=== PATIENT | male | born 1950 | race Caucasian/White ===

== ENCOUNTER → 2017-11-22 07:43 | Outpatient (CLI) | payer MEDICARE, OTHER, SELFPAY ==
--- NOTE | 2017-11-22 07:43 | DT_ITS ---
This patient was seen during an EMR downtime November 17, 2017 - November 24, 2017. This patient may have a combination of paper and electronic documentation or all paper documentation. All documentation is viewable within the e-chart portion of [facility] for each patient visit.
--- NOTE | 2017-11-22 08:23 | MRI_ITS ---
STUDY: MRI LUMBAR SPINE WITHOUT CONTRAST REASON FOR EXAM: Male, 67 years old. Increasing low back pain with radicular symptoms of the right hip. TECHNIQUE: Standardized fat and water weighted pulse sequences were obtained in the sagittal and axial planes. Multiple images are limited by patient motion. COMPARISON: Radiographs of the lumbar spine dated April 23, 2016. FINDINGS: T12-L1: Normal endplates. Normal disc height, signal and morphology. Normal bilateral facet joints. Normal central canal and bilateral lateral recesses. Normal bilateral intervertebral neural foramina. There is straightening of the normal lumbar lordosis. There is no substantial scoliosis. Normal conus medullaris that terminates at the T12-L1 level. L1-2: There is mild annular disk bulge and osteophyte complex. There is mild degenerative arthropathy of the facet joints. Bilateral neuroforamina are narrowed without MR evidence for nerve impingement. There is no significant central canal stenosis. L2-3: There is mild annular disk bulge and osteophyte complex. There is mild degenerative arthropathy of the facet joints. Bilateral neuroforamina are narrowed without MR evidence for nerve impingement. There is no significant central canal stenosis. L3-4: There is mild annular disk bulge and osteophyte complex. There is mild broad central disc protrusion. There is mild degenerative arthropathy of the facet joints. Bilateral neuroforamina are narrowed, left greater than right, without MR evidence for nerve impingement. There is no significant central canal stenosis. L4-5: There is narrowing of the disc with vacuum disc phenomenon. There is an annular disc bulge with posterior broad central disc protrusion. There is mild central acquired canal stenosis. There is mild degenerative arthropathy of facet joints. Neural foramina are severely narrowed with probable impingement of the right L4 nerve root at the neural foramen. L5-S1: There is narrowing of the disc with vacuum disc phenomenon. There is a broad central disc protrusion and osteophyte complex. There is moderate degenerative arthropathy of facet joints. There is no sniffing and central acquired canal stenosis. Neural foramina are severely narrowed with probable impingement of the L5 nerve roots at the neural foramina. Normal visualized sacral ala. Normal visualized paraspinous soft tissue structures. MRI/Spine Lumbar (Routine) IMPRESSION: Moderately severe multilevel degenerative disc disease and degenerative arthropathy of the lumbar spine with neural foraminal narrowing, acquired canal stenosis and potential nerve impingement, as described. Electronically Signed: Neida Fajardo MD at 11:21 EDT , Service support ,
== END ==
PROVIDERS: Family Provider Family Medicine; PCP Family Medicine; Visit Provider Family Medicine
DX: M54.41 Lumbago with sciatica, right side (principal)
CPT/HCPCS: 72148

== ENCOUNTER 2017-12-05 13:00 | Outpatient (RCR) | payer MEDICARE, OTHER, SELFPAY ==
--- NOTE | 2017-09-18 10:47 | HP.PTEVAL_ITS ---
Patient's Visit Information GIACOMO MADRIGAL is a 67 year old M referred to Physical Therapy by Milind DUMONT with a diagnosis of LUMBAR DDD WITH RADIATION DOWN RIGHT LEG.. Date of Evaluation: 09/18/17 Physical Therapist: Sasha Chaidez Visit Plan Frequency: 2-3x /Week Duration: 4-6 Weeks Plan: LUMBAR US. POSTURE CORRECTION/STRENGTHENING, INSTRUCTION IN APPROPRIATE BODY MECHANICS AND ACTIVITY MODIFICATIONS. DLS STARTING WITH A NEUTRAL SPINE PROGRESSING ROM TOLERATED. MARQUIS LE ROM, STRETCHING AND STRENGTHENING. HEP INSTRUCTION. - Subjective Subjective: Diagnosis: LUMBAR DDD WITH RADIATION DOWN RIGHT LEG. 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 Disability: NO. Present symptoms: MARQUIS LOW BACK, RIGHT BUTTOCK, THIGH, LEG AND FOOT. PATIENT DENIES MARQUIS LE NUMBNESS AND TINGLING. LEG SX'S STARTED ABOUT 6 OR MORE MONTHS AGO AND HAS PROGRESSIVELY GOTTEN WORSE. PATIENT LATER REMEMBERED THAT HE GETS INTERMITTENT LEFT GREAT TOE NUMBNESS AND NUMBNESS OF THE RIGHT 2ND, 3RD AND 4TH TOES. Present since: ABOUT A YEAR AGO. Pain Scale: WORST 7/10, LEAST 0/10. Currently: /10. Commenced as a result of: NO APPARENT REASON. Symptoms at onset: LOW BACK PAIN. Worse: STANDING, LYING RIGHT SIDE, HEAVY LIFTING. Better: SITTING. Disturbed sleep: YES. Previous history/Previous treatment: LONG HISTORY OF GOING TO A CHIROPRACTOR STARTING WEEKLY ABOUT 10 YEARS AGO THEN DECREASING TO MONTHLY UNTIL ABOUT A YEAR AGO WHEN THE CHIROPRACTOR SAID SHE COULDN'T DO ANYTHING ELSE. NO PT. NO INJECTIONS. NO BACK SURGERY. NO LOST TIME FROM WORK. NO PRESCRIPTION MEDICATIONS FOR BACK UNTIL GABAPENTEN THIS EPISODE. NO SPECIALIST CONSULTS. Coughing/sneezing/straining: NEGATIVE. Gait : PATIENT REPORTS HIS WALK FEELS NORMAL TO HIM BUT HIS SAYS HE LIMPS AND TURNS HIS FOOT OUT. Difficulty initiating urinatin: NO. Accidents: FALLS ON THE ICE THIS PAST WINTER - MAY AND JUN - EXACERBATED SX'S. ONCE LANDED ON BACK AND ONCE LANDED ON TAILBONE. Unexplained weight loss: NO. Imaging: LUMBAR X- RAYS ABOUT A YEAR AGO - DDD, NO LUMBAR MRI. PMH: CAD, 9 STENTS - 7 YEARS AGO. - Objective Sitting Posture: POOR. Standing Posture: POOR. Lordosis: REDUCED. Lateral shift: NO. Relevant shift: N/A. Active Correction of posture: NE. Other Observations: INDEP GAIT INTO PT WITHOUT ANY AD'S LIMPING ON THE RIGHT LE. NO LOSS OF BALANCE. Motor deficit: MARQUIS LE STRENGTH IS 5/5 WITH MMT'ING EXCEPT HIPS GRADED 4/5 AND RIGHT ANKLE DORSIFLEX 4/5. Sensory deficit: MARQUIS LE LIGHT TOUCH SENSATION IS INTACT AND SYMMETRICAL WITH TESTING TODAY BUT PATIENT IS HAVING INTERMITTENT TOE NUMBNESS STATED ABOVE. ROM deficit: TIGHT MARQUIS HAMSTRINGS AND GASTROC SOLEUS COMPLEX'S. Reflexes: MARQUIS LE'S 2/3. Dural Signs : NEGATIVE MARQUIS LE DURAL SIGNS. Lumbar mvmt loss: flex - MIN. ext - NATTY. R SG - NATTY. L SG - MOD. Core strength: POOR. Palpation: NO ACCUTE TENDERNESS WITH PALPATION OF THE THORACIC, LUMBAR OR SACRAL AREAS EXCEPT L45S1 HAS MILD TENDERNESS. - Goals Goal 1:: DECREASE C/O BACK AND MARQUIS LE SX'S. Goal Time Frame: 4-6 Weeks Goal 2:: IMPROVE LIFTING, STANDING, AND SDLY FUNCTION Goal Time Frame: 4-6 Weeks Goal 3:: INSTRUCT IN PROPHYLAXIS Goal Time Frame: 4-6 Weeks - Rehabilitation Potential Rehabilitation Potential: Fair - Anticipated Interventions Patient/Client Instruction: Educate patient on: Condition, Plan of Care, Risk Factors, Benefits of Fitness Program For the Purpose of:: To improve self management Therapeutic Exercise to Include: Strength training, Body mechanics, Postural training, Flexibilty training, Dynamic Lumbar Stabilization For the Purpose of:: To improve ability of physical actions for home/community/ work/leisure Cryotherapy (ice pack, ice massage): Yes Thermo therapy (hot pack): Yes Ultrasound (thermal/non thermal): Yes For the Purpose of:: To decrease pain, To decrease swelling/inflammation Thank you for the opportunity to evaluate your patient. For Medicare and Medicare HMO plans, please review the plan of care and approve it. It will need to be FAXED BACK to us at [phone] for Medicare purposes. Please let me know if there are questions or concerns regarding this plan of care. Physician Signature: Date:
--- NOTE | 2017-11-07 10:37 | HP.PTREVAL_ITS ---
Milind Griffiths, It has been my pleasure to treat GIACOMO MADRIGAL over the last 19 visits for LUMBAR DDD WITH RADIATION DOWN RIGHT LEG.. Please see the progress note below for an update on the physical therapy plan of care! Subjective: I FEEL BETTER. I HAVE MORE STAMINA BEFORE THE PAIN SETS IN. PATIENT REPORTS THAT OVER-ALL HE FEELS BETTER AND IT IS HARD TO PUT PERCENTAGES ON IT BUT MAYBE 25%. PATIENT REPORTS HE DOESN'T HAVE ANY PAIN RIGHT NOW BUT HE HAD SOME THIS MORNING WHILE SHAVING. HE REPORTS THE MOST PAIN HE HAS HAD IN THE LAST 3 DAYS WAS 7/10 IN THE RIGHT LOW BACK/HIP AREA WHILE WALKING ON CEMENT. APPOINTMENT PENDING WITH DR. GRIFFITHS NEXT Friday. PATIENT STATES HE BELIEVES MORE PT WOULD HELP BECAUSE HE HAS NOTICED AN IMPROVEMENT FOR THE FIRST TIME SINCE THIS STARTED S YEAR AND A HALF AGO. PATIENT REPORTS THE PAIN IS CONTINUING TO BECOME MORE LOCALIZED TO THE HIP AREA AND NOT DOWN THE THIGH MUCH AT ALL. CURRENTLY, HE FEELS LIKE THERE IS A FLAT ROCK UNDER HIS TOES PUTTING PRESSURE UP ON THE BIG TOE AND THE NEXT TOE INTERMITTENTLY AND IT SEEMS TO BE IMPROVING. IT IS NOT PAIN BUT KIND OF A NUMB/TINGLY TYPE FEELING. Objective/Function: PATIENT REPORTED HIS BACK FEELING MORE RELAXED AFTER US AND MANUAL THERAPY TODAY. PATIENT IS CONTINUING TO MAKE SLOW PROGRESS TOWARD ALL PT GOALS AND TOLERATING EX PROGRESSION WELL. UPON EXAM: Lumbar mvmt loss: flex - MIN. ext - MOD TO NATTY. R SG - MOD. L SG - MOD. NO C/O PAIN WITH LUMBAR ROM TESTING. MARQUIS LE STRENGTH IS 5/5 WITH MMT'ING. LUMBAR OSWESTRY SCORE HAS IMPROVED FROM. 7 TO 4. GAIT HAS IMPROVED BUT HE STILL HAS A SUBTLE HIP HIKE ON THE RIGHT LE. GOOD REP EIL TECHNIQUE BUT PATIENT IS NOT DOING THEM EVEN DAILY. Plan Plan: Assess response to US and Manual Therapy. Continue US and Manual Therapy as needed. Progress LPHC and lower extremity strength and stability as tolerated. Continue PT 2-3 times a week x 4-6 weeks. Patient is agreeable to POC. Goals Goal 1:: DECREASE C/O BACK AND MARQUIS LE SX'S. Goal Time Frame: 4-6 Weeks Goal Progress: Progressing Goal 2:: IMPROVE LIFTING, STANDING, AND SDLY FUNCTION Goal Time Frame: 4-6 Weeks Goal Progress: Progressing Goal 3:: INSTRUCT IN PROPHYLAXIS Goal Time Frame: 4-6 Weeks Goal Progress: Progressing Anticipated Interventions Patient/Client Instruction: Educate patient on: Condition, Plan of Care, Risk Factors, Benefits of Fitness Program For the Purpose of:: To improve self management Therapeutic Exercise to Include: Strength training, Body mechanics, Postural training, Flexibilty training, Dynamic Lumbar Stabilization For the Purpose of:: To improve ability of physical actions for home/community/ work/leisure Cryotherapy (ice pack, ice massage): Yes Thermo therapy (hot pack): Yes Ultrasound (thermal/non thermal): Yes For the Purpose of:: To decrease pain, To decrease swelling/inflammation Please do not hesitate to contact me at [phone] by phone or Fax: if you have questions or concerns regarding this new plan of care! Sincerely, Sasha Dunn
--- NOTE | 2017-12-05 13:50 | HP.PTDCSUM_ITS ---
HP - PT D/C Summary It has been my pleasure to treat GIACOMO MADRIGAL under orders from Milind Quintana, for the diagnosis of LUMBAR DDD WITH RADIATION DOWN RIGHT LEG. for a total of 28 visit(s). Discharge Date: Please see the following information for a summary of their discharge status. - Subjective Subjective: PATIENT REPORTS HIS STRENGTH AND STAMINA ARE BETTER AND HE DOESN'T HAVE PAIN OFTEN. 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 HE STATES HE CAN DO GARDENING AND OTHER THINGS AT HOME NOW WITHOUT IT CAUSING HIM PAIN OTHER THAN STIFFNESS. PATIENT REPORTS HE LIKES THERAPY AND IT IS HELPING. MRI ABOUT 2 WEEKS AGO. PATIENT WAS GIVEN RESULT BY NURSE BY PHONE - DDD. CONSULT WITH DR. HULL RECOMMENDED AND PATIENT WAITING ON APPOINTMENT CONFIRMATION. SEE MRI IN [facility] EMR. - Pain LBP Pain Intensity (Out of 10): 0 - Overall Improvement % Improvement: 50 - Objective Objective/Function: PATIENT IS INDEP WITH A HEP. HE LIKES COMING TO PT BUT STATES HE IS OK WITH TRYING TO CONTINUE ON HIS OWN AT THIS POINT. UPON EXAM, HE STILL HAS A SUBTLE HIP HIKE ON THE RIGHT LE. Lumbar mvmt loss: flex - MIN. ext - MOD TO NATTY. R SG - MOD. L SG - MOD. NO C/O PAIN WITH LUMBAR ROM TESTING. MARQUIS LE STRENGTH IS 5/5 WITH MMT'ING. NO SIGNIFICANT CHANGE IN LUMBAR ROM OR LE STRENGTH AT THIS TIME. MARQUIS LE DURAL SIGNS ARE NEGATIVE. LUMBAR OSWESTRY HAS IMPROVED FROM 4 TO 2. - Goals Goal 1:: DECREASE C/O BACK AND MARQUIS LE SX'S. Goal Progress: Goal Met Goal 2:: IMPROVE LIFTING, STANDING, AND SDLY FUNCTION Goal Progress: Goal Met Goal 3:: INSTRUCT IN PROPHYLAXIS Goal Progress: Goal Met - Plan Plan: D/C TO INDEP HEP AND CONSULT WITH PAIN MGMT. WE WOULD BE HAPPY TO RESUME PT IN THE FUTURE NEEDED/INDICATED. PATIENT IS AGREEABLE TO [facility]. - D/C Information If there are questions or concerns regarding this patient's physical therapy, please feel free to call me at [phone]. Thank you for the referral of this patient. Sincerely, Sasha Dunn
== END 2017-12-05 19:00 | disposition home or self-care (01) ==
LOC: PT 13:00
PROVIDERS: Family Provider Family Medicine; PCP Family Medicine; Visit Provider Family Medicine
DX: M51.36 Other intervertebral disc degeneration, lumbar region (principal); M79.604 Pain in right leg
CPT/HCPCS: 97035; 97110; 97140; 97162; 97164; 97530

== ENCOUNTER → 2018-06-17 14:38 | Outpatient (CLI) | payer MEDICARE, OTHER, SELFPAY ==
--- NOTE | 2018-06-17 14:49 | RAD_ITS ---
STUDY: X-RAY - ABDOMEN/PELVIS REASON FOR EXAM: Male, 68 years old. Left-sided pain. Renal calculi TECHNIQUE: Two AP supine views of the abdomen and pelvis. COMPARISON: None. FINDINGS: Normal visualized lung bases. There is a moderate amount of colonic fecal material. There is no demonstrated free abdominal air. Right upper quadrant cholecystectomy clips. No definitive calcifications in the region of the right renal shadow or left renal shadow. The visualized liver, spleen and kidneys are grossly normal in size and morphology. There are calcified phleboliths in the pelvis. There are diffuse degenerative changes of the visualized lumbar spine. RAD/Abdomen Single View IMPRESSION: No definite renal calculi. Nonspecific bowel gas pattern with fecal retention. Electronically Signed: Dimas Israel DO at 9:11 EST Tel , Service support ,
[2018-06-17 15:54] LABS: Absolute Lymphocyte Count 6.33 X10^3/ul (0.83-4.51); Absolute Neutrophil Count 2.5 X10^3/uL (2.0-7.7); Basophil# 0.01 X10^3/uL; Basophil% 0.1 % (0-1); Eosinophil# 0.03 X10^3/uL; Eosinophils% 0.3 % (0-5); Hematocrit 45.8 % (40-54); Lymphocyte # 6.33 X10^3/ul (4.0); Lymphocyte % 70.8 % (19-41); Mean Corp Hgb Conc 32.8 g/gl (32-36); Mean Corpuscular Hgb 31.5 pg (27.0-32.0); Mean Corpuscular Volume 96.2 fL (80-94); Monocyte# 0.11 X10^3/uL; Monocyte% 1.2 % (0-10); Neutrophil # 2.45 X10^3/uL (2.7-7.7); Neutrophil % 27.5 % (47-70); Platelet Count 245 K/mm3 (150-450); RBC Distribution Width CV 13.5 % (11.6-14.6); RBC Distribution Width SD 46.3 fl (35.1-43.9); Red Blood Count 4.76 M/mm3 (4.6-6.2); White Blood Count 8.9 K/mm3 (4.4-11.0)
[2018-06-17 15:56] LABS: Differential Indicated SCAN CRITERIA MET; POSITIVE COUNT NO; POSITIVE DIFFERENTIAL YES; POSITIVE MORPHOLOGY NO
[2018-06-17 16:09] LABS: Anion Gap 7 (5-15); BUN 11 mg/dL (7-18); BUN/Creat Ratio 13.6 RATIO (10-20); Calcium,Total 8.4 mg/dL (8.5-10.1); Chloride 107 mmol/L (98-107); Creatinine, Serum 0.81 mg/dL (0.70-1.30); EST Glomerular Filtration Rate 101 mL/min (>60); Est Glom Filt Rate - Afr Amer 122 mL/min (>60); Glucose 92 mg/dL (74-106); Potassium 4.1 mmol/L (3.5-5.1); Sodium Level 142 mmol/L (136-145)
[2018-06-17 17:31] LABS: Platelet Estimate ADEQUATE (ADEQ); Red Cell Morphology NORM C+C NORMAL (NORM C&C)
== END ==
PROVIDERS: Family Provider Family Medicine; PCP Family Medicine; Referring Provider Family Medicine; Visit Provider Family Medicine
DX: N20.0 Calculus of kidney (principal)
CPT/HCPCS: 36415; 74018; 80048; 85025

== ENCOUNTER → 2018-08-26 17:11 | Outpatient (CLI) | payer MEDICARE, OTHER, SELFPAY ==
--- NOTE | 2018-08-26 17:16 | RAD_ITS ---
STUDY: X-RAY - CERVICAL SPINE REASON FOR EXAM: Male, 68 years old. Chronic neck pain. TECHNIQUE: 5 view(s) of the cervical spine were obtained including oblique views. COMPARISON: None FINDINGS: Normal anterior atlantoaxial articulation. Normal odontoid process. Normal cervical lordosis. There is multi-level endplate spondylosis. Moderate to marked degree of disc space narrowing at the C5-C6 and C6-C7 levels. Normal visualized intervertebral neuroforamina. The soft tissue structures are unremarkable. RAD/Cerv Spine 4 or 5 Views IMPRESSION: Spondylosis and disc space narrowing at the C5-C6 and C6-C7 levels. Electronically Signed: Rafi Ramos, at 10:01 EDT , Service support ,
== END ==
PROVIDERS: Family Provider Family Medicine; PCP Family Medicine; Referring Provider Family Medicine; Visit Provider Family Medicine
DX: R42 Dizziness and giddiness (principal)
CPT/HCPCS: 72050

== ENCOUNTER → 2018-09-07 15:30 | Outpatient (CLI) | payer MEDICARE, OTHER, SELFPAY ==
--- NOTE | 2018-09-07 15:45 | MRI_ITS ---
STUDY: MRI CERVICAL SPINE WITHOUT CONTRAST REASON FOR EXAM: Male, 68 years old. DDD pain base of skull, lightheaded, numbness/tingling when arms raised x 1 month, NKI TECHNIQUE: Standardized fat and water weighted pulse sequences were obtained in the sagittal and axial planes. COMPARISON: None FINDINGS: Normal foramen magnum and brainstem-cervical cord junction. Normal craniovertebral junction. Normal anterior atlantoaxial articulation. Normal odontoid process. Normal cervical lordosis. Normal vertebral bodies and posterior osseous elements. C2-3: Normal endplates. Normal disc height, signal and morphology. Normal central canal and intervertebral neural foramina. C3-4: Endplate spondylosis. Central and paracentral disc bulge. Degenerative changes of the bilateral facet joints and uncovertebral joints. Moderate narrowing of the central canal and the bilateral intervertebral neural foramina. C4-5: Endplate spondylosis. Central and paracentral disc bulge. Degenerative changes of the bilateral facet joints and uncovertebral joints. Moderate narrowing of the central canal and the bilateral intervertebral neural foramina. C5-6: Endplate spondylosis. Central and paracentral disc bulge. Degenerative changes of the bilateral facet joints and uncovertebral joints. Moderate narrowing of the central canal and the bilateral intervertebral neural foramina. C6-7: Endplate spondylosis. Central and paracentral disc bulge more prominent on the left side. Degenerative changes of the bilateral facet joints and uncovertebral joints. Moderate narrowing of the central canal and the bilateral intervertebral neural foramina. C7-T1: Small right para midline disc bulge. Normal central canal and intervertebral neural foramina. Normal cervical cord. Normal visualized soft tissue structures. MRI/Spine Cervical (Routine) IMPRESSION: Multilevel degenerative changes, as described above. Electronically Signed: Kvng Garland, at 8:09 EDT Tel , Service support ,
== END ==
PROVIDERS: Family Provider Family Medicine; PCP Family Medicine; Referring Provider Family Medicine; Visit Provider Family Medicine
DX: M50.30 Other cervical disc degeneration, unspecified cervical region (principal)
CPT/HCPCS: 72141

== ENCOUNTER → 2018-09-22 12:30 | Outpatient (CLI) | payer MEDICARE, OTHER, SELFPAY ==
--- NOTE | 2018-09-22 12:32 | CDU_ITS ---
Reason For Study: DIZZINESS Rt. Velocities/BP Lt. Velocities/BP Prox CCA 116.5/26.5 cm/sec. Prox CCA 179.5/33.4 cm/sec. Mid CCA 115.2/29.1 cm/sec. Mid CCA 132.1/29.8 cm/sec. Dist CCA 125.6/31.7 cm/sec. Dist CCA 115.6/31.6 cm/sec. Prox ICA 86.5/23.9 cm/sec. Prox ICA 119.3/37.1 cm/sec. Mid ICA 77.3/26.5 cm/sec. Mid ICA 106.5/35.3 cm/sec. Dist ICA 76.0/29.1 cm/sec. Dist ICA 93.7/33.4 cm/sec. Rt. ICA/CCA = .75. Lt. ICA/CCA = .90. Prox ECA 93.0/9.5 cm/sec. Prox ECA 90.0/11.5 cm/sec. Rt. Vert. 64.3/14.7 cm/sec. Lt. Vert. 57.9/20.1 cm/sec. Right Extracranial There is intimal thickening but no significant atherosclerotic plaque noted in the right common carotid artery. There is heterogeneous, irregular atherosclerotic plaque noted in the right internal carotid artery. There is intimal thickening but no significant atherosclerotic plaque noted in the right external carotid artery. Antegrade flow is noted in the right vertebral artery. Left Extracranial There is intimal thickening but no significant atherosclerotic plaque noted in the left common carotid artery. There is heterogeneous, irregular atherosclerotic plaque noted in the left internal carotid artery. There is heterogeneous, irregular atherosclerotic plaque noted in the left external carotid artery. Antegrade flow is noted in the left vertebral artery. Procedure Carotid Duplex [id number]. Exam performed in department. Interpretation Summary Mild (<50%) stenosis right extracranial internal carotid. Mild (<50%) stenosis left extracranial internal carotid. Flow within the vertebral arteries is antegrade bilaterally. Ordering Physician: Milind Quintana Referring Physician: Milind Quintana Performed By: Tammy Kiran RVT
== END ==
PROVIDERS: Family Provider Family Medicine; PCP Family Medicine; Referring Provider Family Medicine; Visit Provider Family Medicine
DX: R42 Dizziness and giddiness (principal)
CPT/HCPCS: 93880

== ENCOUNTER → 2019-08-12 | Outpatient (CLI) | payer MEDICARE, OTHER, SELFPAY ==
--- NOTE | 2019-08-12 07:20 | CT_ITS ---
STUDY: CT CHEST WITHOUT CONTRAST- LOW DOSE SCREENING PROTOCOL REASON FOR EXAM: Male, 69 years old. Former smoker. Quit smoking less than 15 years ago 30 pack per year history. No current symptoms of lung cancer or pulmonary infection. Shared decision-making with referring PCP documented in patient''s record. RADIATION DOSAGE (If Supplied By Facility): CTDIvol = ( 2.01 ) mGy, DLP = ( 75.75 ) mGycm TECHNIQUE: Low dose screening CT examination performed from the base of the neck to the upper abdomen. Sagittal and coronal reformatted images performed. Sagittal and coronal MIP images provided. The measurements provided are average, rounded measurements per ACR guidelines. COMPARISON: None. FINDINGS: Mild emphysematous changes. Mild diffuse cylindrical bronchiectasis. No noncalcified nodule or mass. There is no demonstrated pleural abnormality. Normal heart and pericardium. There are calcifications of the coronary arteries. Normal mediastinum. Normal hilar regions. Normal unenhanced pulmonary arteries. Normal aorta arch and descending thoracic aorta. Normal osseous structures. There is no demonstrated abnormality of the visualized upper abdomen. CT/Low Dose CT Lung Screening IMPRESSION: 1. No significant indeterminate incidental findings requiring additional imaging. 2. Incidental findings include mild emphysema and mild diffuse cylindrical bronchiectasis.. ASSESSMENT CATEGORY: LungRADS 1 - Negative. Continue annual screening with LDCT in 12 months, per established ACR guidelines. Electronically Signed: Ignacio Kitchen MD at 13:14 EST Tel , Service support ,
== END | disposition home or self-care (01) ==
LOC: CT 07:13
PROVIDERS: PCP Family Medicine; Referring Provider Family Medicine; Visit Provider Family Medicine
DX: Z87.891 Personal history of nicotine dependence (principal); Z12.2 Encounter for screening for malignant neoplasm of respiratory organs
CPT/HCPCS: G0297

== ENCOUNTER 2019-08-31 08:26 | Observation (INO) | payer MEDICARE, OTHER, SELFPAY ==
[2019-08-31] VITALS (11 sets, daily range): BP systolic 109–143; BP diastolic 64–79; PULSE 51–65; RESP 14–18; TEMP 36.3–36.6; O2SAT 97–100; BMI 21.4; BMI 21.6
--- NOTE | 2019-08-31 08:30 | NURSING ---
NO OLD EKGS
--- NOTE | 2019-08-31 08:39 | CT_ITS ---
STUDY: CT BRAIN WITHOUT CONTRAST REASON FOR EXAM: Male, 69 years old. HEAD INJURY/SYNCOPE/WEAKNESS RADIATION DOSAGE (If Supplied By Facility): CTDIvol = ( 44.99 ) mGy, DLP = ( 863.60 ) mGycm TECHNIQUE: Transaxial CT imaging of the brain was performed without administration of intravenous contrast material. Individualized dose optimization techniques were used for this CT. COMPARISON: No relevant priors. FINDINGS: Normal soft tissue structures. Normal calvarium. There is mild cerebral atrophy with widening of the extra-axial spaces and ventricular dilatation. Normal white matter tracts of the cerebral hemispheres. Normal basal ganglia and thalami. Normal brainstem. Normal cerebellum. There is no intracranial hemorrhage. There are no findings of an acute ischemic infarction. There is evidence of atherosclerotic calcification of the cavernous portions of the internal carotid arteries bilaterally. Tiny mucosal polyp or cyst seen in the anterior aspect of the base of the right maxillary sinus. CT/Brain/Head without Contrast IMPRESSION: Chronic involutional changes of the brain. Electronically Signed: Rafi Ramos, at 9:28 EDT , Service support ,
--- NOTE | 2019-08-31 08:39 | EKG12_ITS ---
Test Reason : SYNCOPE Blood Pressure : / mmHG Vent. Rate : 049 BPM Atrial Rate : 049 BPM P-R Int : 162 ms QRS Dur : 088 ms QT Int : 438 ms P-R-T Axes : 054 057 048 degrees QTc Int : 395 ms Sinus bradycardia Otherwise normal ECG Confirmed by JANIS CHAMPION, IVELISSE ([id number]), editor farm journal REBECCA ALBA ([id number]) on 09/06/2019 11:15:08 AM Referred By: MIKA Confirmed By:STEPHON BRUCE MD
[2019-08-31] MEDS: 0.9% Normal Saline 1,000 ML 150 ML IV (08:55)
[2019-08-31 08:56] LABS: Absolute Lymphocyte Count 26.18 X10^3/uL (0.83-4.51); Absolute Neutrophil Count 1.3 X10^3/uL (2.0-7.7); Basophil# 0.05 X10^3/uL; Basophil% 0.2 % (0-1); Eosinophil# 0.07 X10^3/uL; Eosinophils% 0.2 % (0-5); Hematocrit 42.2 % (40-54); Hemoglobin 13.8 g/dL (13.0-16.5); Lymphocyte # 26.18 X10^3/ul (4.0); Lymphocyte % 92.3 % (19-41); Mean Corp Hgb Conc 32.7 g/dL (32-36); Mean Corpuscular Hgb 32.5 pg (27.0-32.0); Mean Corpuscular Volume 99.3 fL (80-94); Mean Platelet Vol. 9.1 fl (6.2-12.0); Monocyte# 0.72 X10^3/uL; Monocyte% 2.5 % (0-10); NRBC Flagged by Analyzer 0 % (0-5); Neutrophil # 1.31 X10^3/uL (2.7-7.7); Neutrophil % 4.7 % (47-70); POSITIVE DIFFERENTIAL YES; POSITIVE MORPHOLOGY YES; Platelet Count 190 K/mm3 (150-450); RBC Distribution Width SD 50.7 fl (35.1-43.9); Red Blood Count 4.25 M/mm3 (4.6-6.2); White Blood Count 28.4 K/mm3 (4.4-11.0)
[2019-08-31 08:57] LABS: Differential Indicated SCAN CRITERIA MET
--- NOTE | 2019-08-31 09:10 | RAD_ITS ---
STUDY: X-RAY CHEST REASON FOR EXAM: Male, 69 years old. SYNCOPE, FALL TECHNIQUE: Single AP portable view of the chest. COMPARISON: Comparison is made with prior examination dated November 26, 2010. FINDINGS: EKG electrodes are seen. Hyperinflation. Stable mild increased markings at the left lung base suggestive of left basilar scarring. There is no demonstrated pleural abnormality. Normal size heart. Normal mediastinum and jorge luis. Normal visualized pulmonary arteries. There is atherosclerotic calcification of the aortic arch with tortuosity. There are diffuse degenerative changes of the visualized thoracic spine. Normal visualized ribs, clavicles, and shoulders. There is no demonstrated abnormality of the visualized soft tissue structures of the upper abdomen. RAD/Chest 1 View (Portable) IMPRESSION: Hyperinflation. Mild degree of increased markings at the left lung base suggestive of left basilar scarring. Electronically Signed: Rafi Ramos, at 9:53 EDT , Service support ,
--- NOTE | 2019-08-31 09:15 | RAD_ITS ---
STUDY: X-RAY - CERVICAL SPINE REASON FOR EXAM: Male, 69 years old. PAIN S/P FALL TECHNIQUE: 3 view(s) of the cervical spine were obtained. COMPARISON: None FINDINGS: There are degenerative changes of the anterior atlantoaxial articulation. Normal odontoid process. Normal cervical lordosis. There is multi-level endplate spondylosis. There is multi-level degenerative disc disease with multilevel disc space narrowing. Normal visualized intervertebral neuroforamina. The soft tissue structures are unremarkable. RAD/Cerv Spine 2 or 3 Views IMPRESSION: Disc space narrowing and spondylosis at the C3-C4, C5-C6 and 6-7 levels. Electronically Signed: Rafi Ramos, at 9:54 EDT , Service support ,
[2019-08-31 09:18] LABS: Anion Gap 7 (5-15); BUN 21 mg/dL (7-18); BUN/Creat Ratio 21.7 RATIO (10-20); Calcium,Total 8.6 mg/dL (8.5-10.1); Chloride 110 mmol/L (98-107); Creatinine, Serum 0.97 mg/dL (0.70-1.30); EST Glomerular Filtration Rate 82 mL/min (>60); Est Glom Filt Rate - Afr Amer 99 mL/min (>60); Estimated Creatinine Clearance 70.86 ml/min; Glucose 121 mg/dL (74-106); Potassium 3.8 mmol/L (3.5-5.1); Sodium Level 143 mmol/L (136-145)
--- NOTE | 2019-08-31 09:20 | RAD_ITS ---
STUDY: X-RAY - RIGHT ANKLE REASON FOR EXAM: Male, 69 years old. PAIN AND SWELLING, WORSE LATERAL, S/P FALL TECHNIQUE: 3 view(s) of the ankle. COMPARISON: None. FINDINGS: Normal visualized distal tibia and fibula. There is a nondisplaced oblique fracture of the lateral malleolus. Normal tibiotalar articulation and ankle mortise. Normal visualized talus and calcaneus. The visualized subtalar, talonavicular, calcaneocuboid and tarsal articulations are normal. Lateral soft tissue swelling. RAD/Ankle min 3 Views IMPRESSION: Nondisplaced oblique fracture of the lateral malleolus with overlying soft tissue swelling. Electronically Signed: Rafi Ramos, at 9:52 EDT , Service support ,
--- NOTE | 2019-08-31 09:22 | ED.DCSUM_ITS ---
- ER Visit Summary Date of Service: 08/31/19 Chief Complaint: [Syncope] History of Present Illness: The patient is a 69 M [presents the emergency department complaint of a syncopal episode that occurred this morning. Patient states that he remembers coming down the steps of his home that are carpeted when he thinks his left foot slid in his right foot got stuck behind him causing him to fall down the steps. Patient believes he lost consciousness. His found him unconscious. Patient then had oxygen placed on him by the . Patient states that he was very sweaty when the found him. Patient denies recent illness otherwise. He denies recent travel. He denies fever. He complains of pain in his right ankle. Patient complains of a knot sensation in both arms. He denies any chest pain or palpitations. He does have history of heart disease with 9 cardiac stents. He is on Plavix and aspirin. Describe some discomfort in his back which she describes as soreness and states that he has history of lumbar disc herniations.] Physical Examination: [HEENT-PERRLA, EOMI. Cranial nerves II through XII grossly intact. TMs clear. Mucous membranes moist. No adenopathy. Patient has some mild C-spine tenderness diffusely. Good range of motion of flexion-extension. No external evidence of trauma to his head. Cardiovascular-regular rate and rhythm without murmur or ectopy Lungs-clear to auscultation, chest wall stable without crepitus or subcu emphysema Abdomen-normoactive bowel sounds, soft, nontender, no rebound or rigidity, no peritoneal signs. Back exam-patient has some mild diffuse tenderness over lumbar spine. No ecchymosis or bruising noted. No erythema or warmth noted. Extremities-intact ?4, normal range of motion, normal pulses. Right ankle- patient has soft tissue swelling over the lateral malleolus with tenderness to palpation. No pain at the proximal fibular head. No pain at the base of the fifth metatarsal.] Test Results: [EKG obtained on arrival showed sinus bradycardia with a rate of 49 bpm with no acute ST segment changes. CBC with differential showed an elevated white count 20,000, hemoglobin 14, hematocrit 42, platelets 190. Chemistries unremarkable. Troponin is less than 0.015. CT brain without contrast showed chronic changes. X-rays of the C-spine showed degenerative changes. Chest x-ray showed left basilar scarring. X-rays of the right ankle showed a distal fibula fracture.] Orthostatic vital signs were negative. Emergency Department Course and Treatment: [Case was discussed with hospitalist will evaluate patient for admission. Patient was placed in a posterior splint.] Treatment Plan: [Etiology of syncope unclear. Etiology of leukocytosis unclear.] Disposition: [Admit for observation] Impression: [Syncope Right ankle fracture Leukocytosis-etiology uncertain] This note was generated with [employer] dictation software. It may contain incorrect words, spelling, and punctuation that were not noted in review of the chart prior to signing ED Disposition - Plan for ED Patient: Referrals: Edgard Quintana MD [Primary Care Provider] -
--- NOTE | 2019-08-31 09:30 | RAD_ITS ---
STUDY: X-RAY - LUMBAR SPINE REASON FOR EXAM: Male, 69 years old. PAIN S/P FALL TECHNIQUE: 3 view(s) of the lumbar spine were obtained. COMPARISON: None FINDINGS: There is straightening of the normal lumbar lordosis. There is no substantial scoliosis. There is a normal alignment of the vertebrae. There is multilevel endplate spondylosis of the lumbar vertebrae. There is multi-level degenerative disc disease with multi-level disc space narrowing. There is atherosclerotic calcification of the abdominal aorta without a demonstrated aneurysm. RAD/Lumbar Spine 2 or 3 Views IMPRESSION: Degenerative changes of the spine, as detailed above. Loss of the normal lumbar lordosis. Electronically Signed: Rafi Ramos, at 9:56 EDT , Service support ,
--- NOTE | 2019-08-31 10:15 | NURSING ---
DR EPSTEIN FOR DR GOODWIN
--- NOTE | 2019-08-31 10:26 | HP.PCM_ITS ---
Problem List (1) Syncope Status: Acute Qualifiers: Encounter type: initial encounter (2) Hypertension Status: Chronic Qualifiers: Hypertension type: essential hypertension Qualified Code(s): I10 - Essent ial (primary) hypertension (3) CAD (coronary artery disease) Status: Chronic Qualifiers: Coronary Disease-Associated Artery/Lesion type: unspecified vessel or lesion type [place] vs. transplanted heart: [place] heart Associated angina: without angina Qualified Code(s): I25.10 - Atherosclerotic heart disease of [place] coronary artery without angina pectoris History of Present Illness Date of Admission: 08/31/19 Chief Complaint: Syncope, pain in the right foot - 1 day The patient is a 69 year old M with PMHx of CAD s/p 9 stents, Hypertension who comes in with a syncopal episode and complaints of right ankle pain. Patient denied any acute symptoms prior to his fall. He woke up this morning, went to the bathroom and was going to go down the staircase to the kitchen. He remembers his left leg going behind his right and going down the staircase which happens to be carpeted. He remembers sliding down. When he woke up his was next to him and had her oxygen on his face. He remembered where he was. No urine incontinence. He denied any chest pain or dizziness or palpitations prior to this event. When the EMS got there, blood pressure was 104/58, pulse was 50, blood glucose was 111. Vitals in the ED showed temperature of 90 7.8F, heart rate of 51, blood pressure 120/78, respiratory 16, SPO2 100% on room air. His orthostatic vitals were negative in the emergency department. His admitting blood pressure WBC count 28.4, hemoglobin 13.8, platelet count 190, sodium 143, potassium 3.8, chloride 110, bicarbonate 26, BUN 21, creatinine 0.97, troponins were negative, UA was unremarkable. Discussed the brain showed chronic involuntary changes. X-ray showed mild degree of increased markings in the left lung base suggestive of scarring. Cervical spine x-ray showed disc space narrowing/spondylosis at C3- C4, C5-C6 and C6-C7. Lumbar x-ray also confirmed degenerative changes. Past Medical History Past Medical History (Chronic Problems): Chronic Problems Hypertension (Chronic) CAD (coronary artery disease) (Chronic) Allergies No Known Allergies Allergy (Verified 06/01/14 00:56) Home Medications: Ambulatory Orders Medication Instructions Recorded Aspirin [Aspirin, Baby] 81 mg PO DAILY@0800 06/01/14 Clopidogrel Bisulfate [Plavix] 75 mg PO DAILY 06/01/14 Atorvastatin Calcium [Lipitor] 40 mg PO QHS 08/31/19 Losartan Potassium [Cozaar] 25 mg PO DAILY 08/31/19 Surgical History: appendectomy, cholecystectomy Psychiatric History: No pertinent psych hx Lives: Spouse/ Significant Other Smoking Status: Former smoker Tobacco Use: Non-smoker Alcohol: None Drugs: None - *Family History Maternal History Items: Cancer - pancreatic Paternal History Items: Heart Disease - of [place] Review of Systems Constitutional: Denies: Anorexia, Chills, Fever, Malaise, Weakness, Weight Change Eyes: Denies: Blurred vision, Cataracts, Conjunctivae Inflammation, Pain, Redness, Vision Change HEENT: Denies: Difficulty Hearing, Difficulty Swallowing, Head Aches, Hearing Changes, Sinus Congestion, Sinus Drainage Cardiovascular: Denies: Chest Pain, Claudication, Orthopnea, Palpitations, Paroxysmal Noc. Dyspnea Respiratory: Denies: Cough, Hemoptysis, Shortness of breath at rest, Shortness of breath upon exertion, Sputum production Gastrointestinal: Denies: Abdominal Pain, Constipation, Hematemesis, Hematochezia, Nausea, Vomiting Genitourinary: Denies: Dysuria, Frequency, Incontinence Musculoskeletal: Denies: Joint Pain, Joint stiffness, Joint swelling, Joint Tenderness Skin: Denies: Rash, Wounds Neurological: Denies: Difficulty swallowing, Focal weakness, Numbness, Tingling Psychiatric: Denies: Anxiety, Depression, Homicidal Ideations, Suicidal Ideations Hematologic/ Lymphatic: Denies: Easy Bruising, Easy Bleeding VTE Information - Inpt Only VTE Present on Admission: No VTE Pharm Prophylaxis ordered?: Yes Patient Problems: Active and Suspected Problems Syncope (Acute) Closed right ankle fracture (Acute) Bimalleolar ankle fracture (Acute) - Physical Exam Vitals/I&O's: Vital Signs Temp Pulse Resp BP Pulse Ox 97.8 F 56 L 16 128/72 H 100 08/31/19 08:28 08/31/19 09:46 08/31/19 08:28 08/31/19 09:46 08/31/19 08:28 Oxygen Delivery Method Room Air Weight: 69.7 kg Body Mass Index (BMI) 21.4 General: Alert, Oriented x3, Cooperative, No apparent distress HEENT: Atraumatic, PERRLA, EOMI, Normocephalic Oral: Moist Mucosa Neck: Supple Lungs: Clear to auscultation, Normal air movement Cardiovascular: Regular rate, Regular Rhythm, Normal S1, Normal S2, No murmurs Abdomen: Bowel Sounds Present, Soft, Non Tender, Non-Distended, No Hepato- splenomegaly Extremities: No edema Skin: No rashes Musculoskeletal: Tenderness - over right ankle, in partial cast Lymphatic: No Cervical, Supraclavicular, or Inguinal Adenopathy Neurological: Cranial nerves II-XII grossly intact, Neuro grossly intact Psych/Mental Status: Normal Affect, Appropriate Laboratory Results 08/31/19 08:45: WBC 28.4 H, RBC 4.25 L, Hgb 13.8, Hct 42.2, MCV 99.3 H, MCH 32.5 H, MCHC 32.7, RDW Std Deviation 50.7 H, RDW Coeff of Shane 14.0, Plt Count 190, MPV 9.1, Immature Gran % (Auto) 0.100, Neut % (Auto) 4.7 L, Lymph % (Auto) 92.3 H, Allen % (Auto) 2.5, Eos % (Auto) 0.2, Baso % (Auto) 0.2, Absolute Neuts (auto) 1.3 L, Absolute Lymphs (auto) 26.18 H, Nucleated RBC % 0, Differential Comment COMMENT 08/31/19 08:45: Sodium 143, Potassium 3.8, Chloride 110 H, Carbon Dioxide 26.0, Anion Gap 7, BUN 21 H, Creatinine 0.97, Estim Creat Clear Calc 70.86, Est GFR (MDRD) Af Amer 99, Est GFR (MDRD) Non-Af 82, BUN/Creatinine Ratio 21.7 H, Glucose 121 H, Calcium 8.6, Troponin I < 0.015 Current Medications Sodium Chloride () 1,000 mls @ 150 mls/hr IV .[id number] [facility] Last Admin: 08/31/19 08:55 Dose: 150 mls/hr Documented by: Assessment/Plan All Active Problems Syncope (Acute) Closed right ankle fracture (Acute) Bimalleolar ankle fracture (Acute) 69 year old M with PMHx of CAD s/p 9 stents, Hypertension who comes in with a syncopal episode and complaints of right ankle pain. 1. Syncope, h/o CAD s/p stents, unclear reason for syncope Admitting EKG shows no acute ST-T changes, troponins are negative x1, orthostatic vitals are negative Will obtain results from his primary cardiology office and [facility], trend troponins, monitor on telemetry 2. Right lateral malleolus fracture, nondisplaced, patient in a partial cast Consult orthopedics, pain control with Tylenol, oxycodone 3. Leucocytosis without evidence of infection, likely reactive, will trend 4. Hypertension, continue on Losartan 5. Hyperlipidemia, continue on statin 6. DVT PPx-Lovenox SC OBSV E&M: [id number] Initial observation care L3
--- NOTE | 2019-08-31 10:36 | NURSING ---
107 PAINTSIL SYNCOPE, RT ANKLE FX, LEUKOCYTOSIS
[2019-08-31 11:01] LABS: Bacteria 0 SEEN /hpf (None Seen); Mucous, Urine 0 SEEN /hpf (<or=2+); White Blood Cells 0 SEEN /hpf (0-5)
[2019-08-31 11:05] LABS: Color, Urine Yellow (Yellow); Glucose, Dipstick Normal (Normal); Ketone-Dipstick Negative (Negative); Leukocyte Esterase-Dipstick Negative /ul (Negative); Nitrite-Dipstick Negative (Negative); Occult Blood-Urine 10 /ul (Negative); Protein-Dipstick 15 mg/dl (Negative); Urine Bilirubin Dipstick Negative (Negative); Urine Clarity Sl. Cloudy (Clear); Urine Urobilinogen Normal (Normal)
[2019-08-31 11:16] LABS: Red Blood Cells-Urine 0-5 SEEN /hpf (0-5); Squamous Epithelial Cells - UA 0-5 SEEN /hpf (0-5)
[2019-08-31] MEDS: Atorvastatin Calcium 40 MG Tablet PO (21:07)
[2019-09-01 01:44] VITALS: BP 114/71; PULSE 56; RESP 16; TEMP 37.1; O2SAT 97
[2019-09-01] MEDS: Acetaminophen 325 MG Tablet 650 MG PO (01:47)
[2019-09-01 03:19] VITALS: PULSE 52
[2019-09-01 06:03] LABS: Absolute Lymphocyte Count 25.71 X10^3/uL (0.83-4.51); Absolute Neutrophil Count 1.5 X10^3/uL (2.0-7.7); Basophil# 0.03 X10^3/uL; Basophil% 0.1 % (0-1); Eosinophil# 0.05 X10^3/uL; Eosinophils% 0.2 % (0-5); Hematocrit 37.4 % (40-54); Lymphocyte # 25.71 X10^3/ul (4.0); Lymphocyte % 93.4 % (19-41); Mean Corp Hgb Conc 32.1 g/dL (32-36); Mean Corpuscular Hgb 31.7 pg (27.0-32.0); Mean Corpuscular Volume 98.7 fL (80-94); Mean Platelet Vol. 9.2 fl (6.2-12.0); Monocyte# 0.21 X10^3/uL; Monocyte% 0.8 % (0-10); NRBC Flagged by Analyzer 0 % (0-5); Neutrophil % 5.4 % (47-70); POSITIVE DIFFERENTIAL YES; POSITIVE MORPHOLOGY YES; Platelet Count 167 K/mm3 (150-450); RBC Distribution Width CV 14.4 % (11.6-14.6); RBC Distribution Width SD 52.1 fl (35.1-43.9); Red Blood Count 3.79 M/mm3 (4.6-6.2); White Blood Count 27.5 K/mm3 (4.4-11.0)
[2019-09-01 06:17] LABS: Differential Indicated SCAN CRITERIA MET
[2019-09-01 06:29] LABS: Anisocytosis RARE; Macrocytosis RARE; Platelet Estimate ADEQUATE (ADEQ); Red Cell Morphology N CHROM NORMAL (NORM C&C)
[2019-09-01 06:36] LABS: ALB/GLOB Ratio 1.5 RATIO (0.9-2.4); AST(SGOT) 29 U/L (15-37); Alanine Aminotransfer ALT/SGPT 45 U/L (16-61); Albumin, Serum 3.4 g/dL (3.2-5.0); Alkaline Phosphatase 76 U/L (45-117); Anion Gap 5 (5-15); BUN 19 mg/dL (7-18); BUN/Creat Ratio 22.2 RATIO (10-20); Chloride 109 mmol/L (98-107); Creatinine, Serum 0.86 mg/dL (0.70-1.30); EST Glomerular Filtration Rate 94 mL/min (>60); Est Glom Filt Rate - Afr Amer 114 mL/min (>60); Globulin 2.2 g/dL (2.2-4.2); Glucose 93 mg/dL (74-106); Potassium 4.4 mmol/L (3.5-5.1); Protein, Total 5.6 g/dL (6.4-8.2); Sodium Level 140 mmol/L (136-145)
[2019-09-01 06:52] VITALS: PULSE 48
[2019-09-01 07:40] VITALS: BP 125/70; PULSE 48; RESP 16; TEMP 36.3; O2SAT 98
--- NOTE | 2019-09-01 07:41 | CON.PCM_ITS ---
Problem List (1) Closed right ankle fracture Status: Acute Qualifiers: Encounter type: initial encounter Qualified Code(s): S82.891A - Other fracture of right lower leg, initial encounter for closed fracture (2) Bimalleolar ankle fracture Status: Acute Qualifiers: Encounter type: initial encounter Fracture type: closed Laterality: right Qualified Code(s): S82.841A - Displaced bimalleolar fracture of right lower leg, initial encounter for closed fracture Reason for Consult Date of Consultation: 09/01/19 Reason for Consultation: Right ankle fracture History of Present Illness: The patient is a 69 year old M who was admitted to [facility] on 09/01/2019 after a syncopal episode that occurred the morning of 08/31/2019. After verbal questioning, patient states that he remembers coming down the steps of his home that are carpeted. He believes that his left foot slid as he was coming down the stairs. His right foot got stuck behind him at that time, causing him to fall down the steps. Patient believes he lost consciousness, but is unsure if the loss of consciousness caused the fall or that the fall caused the loss of consciousness. His found him unconscious. Patient then had oxygen placed on him by the . Patient states that he was very sweaty when the found him. Patient was then brought to the emergency department for further evaluation. Patient complained of pain in his right ankle after the fall, but did not notice a deformity. There were no open lesions as noted by the patient or the emergency department staff. X-rays were taken of his right ankle, revealing a nondisplaced ankle fracture. Patient was then placed in a posterior splint by the emergency department staff. Patient was subsequently admitted for further evaluation of syncopal episode. Patient denies recent illness otherwise. He denies recent travel. He denies fever. He complains of pain in his right ankle that is improved since admission. He denies any chest pain or palpitations. He does have history of heart disease with 9 cardiac stents. Past Medical History Past Medical History (Chronic Problems): Chronic Problems Hypertension (Chronic) CAD (coronary artery disease) (Chronic) Allergies No Known Allergies Allergy (Verified 06/01/14 00:56) Home Medications: Ambulatory Orders Medication Instructions Recorded Aspirin [Aspirin, Baby] 81 mg PO DAILY@0800 06/01/14 Clopidogrel Bisulfate [Plavix] 75 mg PO DAILY 06/01/14 Atorvastatin Calcium [Lipitor] 40 mg PO QHS 08/31/19 Losartan Potassium [Cozaar] 25 mg PO DAILY 08/31/19 Psychiatric History: No pertinent psych hx Lives: Spouse/ Significant Other Smoking Status: Former smoker Tobacco Use: Non-smoker Alcohol: None Drugs: None Review of Systems Constitutional: Denies: Anorexia, Chills, Fever, Night Sweats Eyes: Denies: Blurred vision, Double vision HEENT: Denies: Difficulty Hearing, Difficulty Swallowing Cardiovascular: Denies: Chest Pain, Chest Pressure, Chest Tightness Respiratory: Denies: Cough, Shortness of Breath, Shortness of breath at rest, Shortness of breath upon exertion Gastrointestinal: Denies: Abdominal Pain Genitourinary: Denies: Dysuria, Incontinence Musculoskeletal: Reports: Foot Pain, Joint Pain - right ankle and foot pain Skin: Denies: Dryness Neurological: Denies: Balance problems, Difficulty swallowing Psychiatric: Denies: Anxiety, Depression Endocrine: Denies: Change in Body Habitus, Heat/ Cold Intolerance, Polydipsia, Polyuria Patient Problems: Active and Suspected Problems Syncope (Acute) Closed right ankle fracture (Acute) Bimalleolar ankle fracture (Acute) Subjective: Patient was seen at bedside resting comfortably. Patient admits to improved pain of his right foot and ankle. Patient states that his ankle was placed on the splint, and he is tolerating this well. Patient denies any acute events overnight. Overall, patient is feeling better since admission. Currently, patient denies fever, chills, nausea, vomiting, shortness of breath, chest pain. Patient denies right calf pain. Objective: Right lower extremity exam: Vascular: Reveals a palpable dorsalis pedis and posterior tibial pulse. Cap illary fill time is less than 3 seconds all digits. Temperature gradient is within normal limits of the right lower extremity. Positive nonpitting edema noted around the right foot and ankle starting the dorsal aspect of the right foot extending proximally to the level of the ankle joint. Loss of skin lines noted around the ankle. No evidence of fracture blisters present. Neurological: Gross and protective sensation are intact up to the tibial tuberosity of the right lower extremity Dermatological: No evidence of open lesions or fracture blisters present. Positive ecchymosis noted around the right ankle and foot. Musculoskeletal: Right ankle: Positive pain upon palpation and compression of the lateral malleolus of the right ankle. Positive pain upon palpation compression of the l ateral ankle ligamentous complex. Minimal pain upon palpation and compression of the syndesmosis of the right ankle. No pain upon palpation or compression of the Achilles tendon. Achilles tendon feels intact with no evidence of gapping. Minimal pain upon palpation compression of the posterior aspect of the tibia. No pain upon palpation or compression of the medial malleolus or the medial ankle ligamentous complex. Right foot: No pain upon palpation compression of the styloid process of the fifth metatarsal of the right foot. Minimal pain upon palpation compression of the tarsometatarsal joint of the right foot. Metatarsal phalangeal joint range of motion is intact and pain-free. No pain upon palpation or compression of the right calcaneus. Negative squeeze test noted of the right calcaneus. No other areas of tenderness noted of the right foot. - Physical Exam Vitals/I&O's: Vital Signs Temp Pulse Resp BP Pulse Ox 98.7 F 48 L 16 114/71 97 09/01/19 01:44 09/01/19 06:52 09/01/19 01:44 09/01/19 01:44 09/01/19 01:44 Oxygen Delivery Method Room Air Weight: 69.944 kg Body Mass Index (BMI) 21.6 Intake and Output for Last 24 Hours 08/30/19 08/31/19 09/01/19 23:59 23:59 23:59 Intake Total 1137.5 / 1137.5 200 / 200 Output Total 800 / 800 Balance 337.5 / 337.5 200 / 200 General: Alert, Oriented x3, Cooperative, No apparent distress HEENT: Atraumatic, PERRLA Oral: Moist Mucosa Neck: Supple, No JVD Lungs: Clear to auscultation, Normal air movement, No rhonchi, No wheeze, No rales Cardiovascular: Regular rate, Regular Rhythm, Normal S1, Normal S2 Abdomen: Bowel Sounds Present, Soft, Non Tender, Non-Distended Extremities: Capillary Refill Less than 3 Seconds, Edema - as described above in the ankle, Peripheral Pulses Normal Skin: No rashes, No breakdown Musculoskeletal: Tenderness - upon palpation and compression of the right foot and ankle as described above Neurological: Neuro grossly intact, Sensory exam intact to light touch and pain Psych/Mental Status: Alert and oriented to time, place, person, mood and affect Laboratory Results 08/31/19 08:45: WBC 28.4 H, RBC 4.25 L, Hgb 13.8, Hct 42.2, MCV 99.3 H, MCH 32.5 H, MCHC 32.7, RDW Std Deviation 50.7 H, RDW Coeff of Shane 14.0, Plt Count 190, MPV 9.1, Immature Gran % (Auto) 0.100, Neut % (Auto) 4.7 L, Lymph % (Auto) 92.3 H, Limestone % (Auto) 2.5, Eos % (Auto) 0.2, Baso % (Auto) 0.2, Absolute Neuts (auto) 1.3 L, Absolute Lymphs (auto) 26.18 H, Nucleated RBC % 0, Differential Comment COMMENT 08/31/19 08:45: Sodium 143, Potassium 3.8, Chloride 110 H, Carbon Dioxide 26.0, Anion Gap 7, BUN 21 H, Creatinine 0.97, Estim Creat Clear Calc 70.86, Est GFR (MDRD) Af Amer 99, Est GFR (MDRD) Non-Af 82, BUN/Creatinine Ratio 21.7 H, Glucose 121 H, Calcium 8.6, Troponin I < 0.015 08/31/19 11:00: Urine Color Yellow, Urine Clarity Sl. Cloudy, Urine pH 8.0, Ur Specific Prince 1.010, Urine Protein 15 H, Urine Glucose (UA) Normal, Urine Ketones Negative, Urine Occult Blood 10 H, Urine Nitrite Negative, Urine Bilirubin Negative, Urine Urobilinogen Normal, Ur Leukocyte Esterase Negative, Urine RBC 0-5 SEEN, Urine WBC 0 SEEN, Ur Squamous Epith Cells 0-5 SEEN, Urine Bacteria 0 SEEN, Urine Mucus 0 SEEN 08/31/19 13:20: Troponin I < 0.015 08/31/19 15:59: Troponin I < 0.015 09/01/19 05:30: WBC 27.5 H, RBC 3.79 L, Hgb 12.0 L, Hct 37.4 L, MCV 98.7 H, MCH 31.7, MCHC 32.1, RDW Std Deviation 52.1 H, RDW Coeff of Shane 14.4, Plt Count 167, MPV 9.2, Immature Gran % (Auto) 0.100, Neut % (Auto) 5.4 L, Lymph % (Auto) 93.4 H, Limestone % (Auto) 0.8, Eos % (Auto) 0.2, Baso % (Auto) 0.1, Absolute Neuts (auto) 1.5 L, Absolute Lymphs (auto) 25.71 H, Nucleated RBC % 0, Differential Comment SEE COMMENT, Diff Path Review May foll, Platelet Estimate ADEQUATE, RBC Morphology N CHROM, Anisocytosis RARE, Macrocytosis RARE 09/01/19 05:30: Sodium 140, Potassium 4.4, Chloride 109 H, Carbon Dioxide 26.0, Anion Gap 5, BUN 19 H, Creatinine 0.86, Estim Creat Clear Calc 80.20, Est GFR (MDRD) Af Amer 114, Est GFR (MDRD) Non-Af 94, BUN/Creatinine Ratio 22.2 H, Gluco se 93, Calcium 8.0 L, Total Bilirubin 0.90, AST 29, ALT 45, Alkaline Phosphatase 76, Total Protein 5.6 L, Albumin 3.4, Globulin 2.2, Albumin/Globulin Ratio 1.5 STUDY: X-RAY - RIGHT ANKLE REASON FOR EXAM: Male, 69 years old. PAIN AND SWELLING, WORSE LATERAL, S/P FALL TECHNIQUE: 3 view(s) of the ankle. COMPARISON: None. FINDINGS: Normal visualized distal tibia and fibula. There is a nondisplaced oblique fracture of the lateral malleolus. Normal tibiotalar articulation and ankle mortise. Normal visualized talus and calcaneus. The visualized subtalar, talonavicular, calcaneocuboid and tarsal articulations are normal. Lateral soft tissue swelling. RAD/Ankle min 3 Views IMPRESSION: Nondisplaced oblique fracture of the lateral malleolus with overlying soft tissue swelling. Electronically Signed: Rafi Ramos, at 9:52 EDT , Service support , This is the official read of the right ankle x-ray. I agree with this assessment. As read by me, there is a possibility of the posterior malleoli are fracture of the tibia that is nondisplaced in nature. As read by me, I believe that this does not involve more than 25% of the ankle joint. I do not visualize any other gross abnormalities at this time. Current Medications Acetaminophen (Tylenol) 650 mg PO Q6H PRN PRN PRN Reason: Pain Score 1-10/Temp > 100.7 F Last Admin: 09/01/19 01:47 Dose: 650 mg Documented by: Aspirin (Aspirin, Baby) 81 mg PO DAILY@0800 JANIE Atorvastatin Calcium (Lipitor) 40 mg PO QHS [facility] Last Admin: 08/31/19 21:07 Dose: 40 mg Documented by: Clopidogrel Bisulfate (Plavix) 75 mg PO DAILY JANIE Enoxaparin Sodium (Lovenox) 40 mg SC DAILY JANIE Losartan Potassium (Cozaar) 25 mg PO DAILY [facility] Nitroglycerin (Nitrostat) 0.4 mg SUBLINGUAL Q5M PRN PRN Reason: CARDIAC/CHEST PAIN Ondansetron HCl (Zofran) 4 mg IV Q8H PRN PRN PRN Reason: NAUSEA/VOMITING Oxycodone HCl (Oxyir) 5 mg PO Q4H PRN PRN PRN Reason: Pain Score 4-10/10 Sodium Chloride () 10 - 40 ml IV UD PRN PRN Reason: SALINE FLUSH Assessment/Plan All Active Problems Syncope (Acute) Closed right ankle fracture (Acute) Bimalleolar ankle fracture (Acute) This is a 69-year-old male who was admitted to [facility] status post syncopal episode who has a right ankle fracture. Plan: Patient chart reviewed and patient evaluated. Full discussion had with the patient about his current clinical condition. I discussed the radiological findings of his right ankle as read by the radiologist and as read by me. I discussed with the patient the nature of these fractures, stating that the fractures are nondisplaced and the ankle joint is not dislocated. I discussed with him conservative and surgical interventions for this. Risks and benefits of both treatment therapies discussed with the patient. At this time, I believe that we can pursue conservative therapy due to the nature of the fractures. We can continue nonweightbearing to the right lower extremity in the patient's posterior splint. Patient is agreeable to this and is electing to pursue conservative therapy at this time. A multilayer compressive dressing was placed on the right lower extremity. The posterior splint was placed back on the right lower extremity. Neurovascular status was assessed at the end of application and deemed intact to the right lower extremity. I instructed the patient to keep the dressing to the right lower extremity clean, dry, intact. He is to not get the dressing wet. If he does get the dressing wet, he is to call my office for further instructions. I instructed the patient to elevate his right foot ankle above the level of heart as much as possible. I discussed with the patient that he should be icing around the right knee 20 minutes on, 20 minutes off, every hour while he is awake until follow-up appointment. I discussed with the patient that he can take anti-inflammatory medications as necessary for pain control. I would recommend continued pain control per primary care team I would recommend a physical therapy evaluation to instruct the patient on nonweightbearing to right leg with assistive devices, At this time, I would like to order right foot x-rays to rule out any further injury. Patient does not need to have x-rays read by me prior to discharge. Patient is a follow-up in my [place] office on Friday, September 06, 2019. Phone number is [phone] to schedule appointment Patient displayed verbal understanding to all written and oral instructions at this time. Patient is agreeable to the current treatment plan at this time. All of his questions were answered to his satisfaction and all of his concerns were addressed. Patient will follow-up with me in my office on Friday, September 06, 2019 for further continued care. If there are any questions or concerns, please do not hesitate to contact me. Thank you very much for the consultation and allowing me to take part in the care of your patient. Office Visits / Consults: [id number] IP Consult L3
--- NOTE | 2019-09-01 08:54 | RAD_ITS ---
STUDY: X-RAY - RIGHT FOOT CLINICAL: Male, 69 years old. Possible trauma to tarsometatarsal joint/calcaneus; pt fell yesterday TECHNIQUE: 3 view(s) of the foot. COMPARISON: None. FINDINGS: I suspect a nondisplaced fracture along the posterior malleolus of the distal tibia. Nondisplaced fracture of the lateral malleolus. Normal talus, calcaneus, and tarsal bones. Normal visualized subtalar, talonavicular, calcaneocuboid, tarsal and tarsometatarsal articulations. Normal metatarsi. Normal metatarsophalangeal joint of the great toe. Normal tibial and fibular sesamoid bones. Normal interphalangeal joint of the great toe. Normal phalanges of the great toe. Normal second through fifth metatarsophalangeal joints. Normal interphalangeal joints and phalanges of the lesser toes. Soft tissue swelling. RAD/Foot min 3 Views IMPRESSION: I suspect a nondisplaced fracture along the posterior malleolus of the distal tibia with soft tissue swelling. Nondisplaced fracture of the lateral malleolus. Electronically Signed: Rafi Ramos, at 13:30 EDT , Service support ,
[2019-09-01 08:58] LABS: Pathologist Review Reviewed
--- NOTE | 2019-09-01 09:26 | DCINST_ITS ---
- Discharge Diagnoses Current Active Problems: Current Active and Chronic Problems Syncope (Acute) Hypertension (Chronic) CAD (coronary artery disease) (Chronic) Closed right ankle fracture (Acute) Bimalleolar ankle fracture (Acute) Reason(s) for Visit for Discharge Instructions: Syncope You will use the following diet at home:: Cardiac Your food should be the consistency of: Regular Your liquids should be the consistency of: Regular/Thin Discharge Activity: Return to Normal Activity Additional Instructions: Continue to take all your medications. You may take tylenol and Ibuprofen as needed for pain. Continue to follow with Dr. Fajardo as scheduled within 1 week. You need repeat blood work within 1 week. Keep the dressing to the right lower extremity clean, dry, intact. You are not get the dressing wet. If the dressing wet, you are to call my office for further instructions. Elevate your right foot ankle above the level of heart as much as possible. You should be icing around the right knee 20 minutes on, 20 minutes off, every hour while he is awake until follow-up appointment. Allergies/Adverse Reactions: Allergies No Known Allergies Allergy (Verified 06/01/14 00:56) Medications to take at Discharge Aspirin [Aspirin, Baby] 81 mg PO DAILY@0800 06/01/14 Clopidogrel Bisulfate [Plavix] 75 mg PO DAILY 06/01/14 Atorvastatin Calcium [Lipitor] 40 mg PO QHS 08/31/19 Losartan Potassium [Cozaar] 25 mg PO DAILY 08/31/19 Primary Care Physician: Edgard Quintana MD [Primary Care Provider] - Please follow up with your Primary Care Physician in: within 1-2 weeks Test Results: Test results from this visit will be discussed in further detail at your follow- up appointment, if applicable. Please Follow Up With: Koby Fajardo DPM When: as scheduled on September 05 Proposed Discharge Date: 09/01/19
[2019-09-01] MEDS: Aspirin 81 MG TAB.CHEW PO (09:27)
[2019-09-01] MEDS: Losartan Potassium 25 MG Tablet PO (09:27)
[2019-09-01] MEDS: Clopidogrel Bisulfate 75 MG Tablet PO (09:27)
--- NOTE | 2019-09-01 09:35 | PCM.DC.SUM ---
Discharge Date and Diagnosis Date of Admission: 08/31/19 Date of Discharge: 09/01/19 - Primary Discharge Diagnosis Active and Suspected Problems Syncope (Acute) Closed right ankle fracture (Acute) Bimalleolar ankle fracture (Acute) Leukocytosis, unknown etiology - Secondary Discharge Diagnosis Chronic Problems Hypertension (Chronic) CAD (coronary artery disease) (Chronic) Hospital Course and Treatment Imaging Results: 09/01/19 08:54 Xray Foot [Foot min 3 Views] [RAD] Urgent Clinical Impression(s) from Imaging Studies Brain CT 08/31/19 08:39 IMPRESSION: Chronic involutional changes of the brain. Electronically Signed: Rafi Ramos, at 9:28 EDT , Service support , Chest X-Ray 08/31/19 09:10 IMPRESSION: Hyperinflation. Mild degree of increased markings at the left lung base suggestive of left basilar scarring. Electronically Signed: Rafi Ramos at 9:53 EDT , Service support , Cervical Spine X-Ray 08/31/19 09:15 IMPRESSION: Disc space narrowing and spondylosis at the C3-C4, C5-C6 and 6-7 levels. Electronically Signed: Rafi Ramos at 9:54 EDT , Service support , Ankle X-Ray 08/31/19 09:20 IMPRESSION: Nondisplaced oblique fracture of the lateral malleolus with overlying soft tissue swelling. Electronically Signed: Rafi Ramos at 9:52 EDT , Service support , Lumbar Spine X-Ray 08/31/19 09:30 IMPRESSION: Degenerative changes of the spine, as detailed above. Loss of the normal lumbar lordosis. Electronically Signed: Rafi Ramos at 9:56 EDT , Service support , Foot X-Ray 09/01/19 08:54 IMPRESSION: I suspect a nondisplaced fracture along the posterior malleolus of the distal tibia with soft tissue swelling. Nondisplaced fracture of the lateral malleolus. Electronically Signed: Rafi Ramos, at 13:30 EDT , Service support , Orthopedic surgery Operations: None Procedures: None Summary of Care Provided: 69 year old M with PMHx of CAD s/p 9 stents, hypertension who comes in with a syncopal episode and complaints of right ankle pain after a fall. Patient woke up in the morning with no acute complains. As he was going downstairs for breakfast, he had a syncopal episode and fell down the staircase. He had pain in the right ankle and imaging showed non-displaced fracture along the posterior malleolus of the distal tibia as well as nondisplaced fracture of the lateral malleolus. Blood glucose with EMS was 111. Patient's admitting EKG showed no acute ST-T changes. Troponins were negative. Orthostatic vitals were negative. No acute events on telemetry. Patient follows up with a plate maker in [facility]. Still had elevated WBC count of 28.4, no source of infection. Repeat WBC count the next morning was 27.5. Still no source of infection found. He was asked to follow-up with his primary care doctor for repeat work-up within a week and possible referral to hematology Subjective: On the day of discharge, patient was seen and examined. His pain is controlled. Denies chest pain, dizziness, palpitations. No events on telemetry. Objective: Physical exam: General: Alert, Oriented x3, Cooperative, No apparent distress HEENT: Atraumatic, PERRLA, EOMI, Normocephalic Oral: Moist Mucosa Neck: Supple Lungs: Clear to auscultation, Normal air movement Cardiovascular: Regular rate, Regular Rhythm, Normal S1, Normal S2, No murmurs Abdomen: Bowel Sounds Present, Soft, Non Tender, Non-Distended, No Hepato-splenomegaly Extremities: No edema Skin: No rashes Musculoskeletal: Tenderness - over right ankle, in partial cast Lymphatic: No Cervical, Supraclavicular, or Inguinal Adenopathy Neurological: Cranial nerves II-XII grossly intact, Neuro grossly intact Psych/Mental Status: Normal Affect, Appropriate - Physical Exam Vitals/I&O's: Vital Signs Temp Pulse Resp BP Pulse Ox 97.3 F L 48 L 16 125/70 H 98 09/01/19 07:40 09/01/19 07:40 09/01/19 07:40 09/01/19 07:40 09/01/19 07:40 Oxygen Delivery Method Room Air Weight: 69.944 kg Body Mass Index (BMI) 21.6 Intake and Output for Last 24 Hours 08/30/19 08/31/19 09/01/19 23:59 23:59 23:59 Intake Total 1137.5 / 1137.5 200 / 200 Output Total 800 / 800 Balance 337.5 / 337.5 200 / 200 Laboratory Results 08/31/19 11:00: Urine Color Yellow, Urine Clarity Sl. Cloudy, Urine pH 8.0, Ur Specific [place] 1.010, Urine Protein 15 H, Urine Glucose (UA) Normal, Urine Ketones Negative, Urine Occult Blood 10 H, Urine Nitrite Negative, Urine Bilirubin Negative, Urine Urobilinogen Normal, Ur Leukocyte Esterase Negative, Urine RBC 0-5 SEEN, Urine WBC 0 SEEN, Ur Squamous Epith Cells 0-5 SEEN, Urine Bacteria 0 SEEN, Urine Mucus 0 SEEN 08/31/19 13:20: Troponin I < 0.015 08/31/19 15:59: Troponin I < 0.015 09/01/19 05:30: WBC 27.5 H, RBC 3.79 L, Hgb 12.0 L, Hct 37.4 L, MCV 98.7 H, MCH 31.7, MCHC 32.1, RDW Std Deviation 52.1 H, RDW Coeff of Shane 14.4, Plt Count 167, MPV 9.2, Immature Gran % (Auto) 0.100, Neut % (Auto) 5.4 L, Lymph % (Auto) 93.4 H, [place] % (Auto) 0.8, Eos % (Auto) 0.2, Baso % (Auto) 0.1, Absolute Neuts (auto) 1.5 L, Absolute Lymphs (auto) 25.71 H, Nucleated RBC % 0, Differential Comment SEE COMMENT, Diff Path Review Reviewed, Platelet Estimate ADEQUATE, RBC Morphology N CHROM, Anisocytosis RARE, Macrocytosis RARE 09/01/19 05:30: Sodium 140, Potassium 4.4, Chloride 109 H, Carbon Dioxide 26.0, Anion Gap 5, BUN 19 H, Creatinine 0.86, Estim Creat Clear Calc 80.20, Est GFR (MDRD) Af Amer 114, Est GFR (MDRD) Non-Af 94, BUN/Creatinine Ratio 22.2 H, Glucose 93, Calcium 8.0 L, Total Bilirubin 0.90, AST 29, ALT 45, Alkaline Phosphatase 76, Total Protein 5.6 L, Albumin 3.4, Globulin 2.2, Albumin/Globulin Ratio 1.5 Current Medications Acetaminophen (Tylenol) 650 mg PO Q6H PRN PRN PRN Reason: Pain Score 1-10/Temp > 100.7 F Last Admin: 09/01/19 01:47 Dose: 650 mg Documented by: Aspirin (Aspirin, Baby) 81 mg PO DAILY@0800 [facility] Last Admin: 09/01/19 09:27 Dose: 81 mg Documented by: Atorvastatin Calcium (Lipitor) 40 mg PO QHS [facility] Last Admin: 08/31/19 21:07 Dose: 40 mg Documented by: Clopidogrel Bisulfate (Plavix) 75 mg PO DAILY [facility] Last Admin: 09/01/19 09:27 Dose: 75 mg Documented by: Enoxaparin Sodium (Lovenox) 40 mg SC DAILY [facility] Last Admin: 09/01/19 09:28 Dose: Not Given Documented by: Losartan Potassium (Cozaar) 25 mg PO DAILY [facility] Last Admin: 09/01/19 09:27 Dose: 25 mg Documented by: Nitroglycerin (Nitrostat) 0.4 mg SUBLINGUAL Q5M PRN PRN Reason: CARDIAC/CHEST PAIN Ondansetron HCl (Zofran) 4 mg IV Q8H PRN PRN PRN Reason: NAUSEA/VOMITING Oxycodone HCl (Oxyir) 5 mg PO Q4H PRN PRN PRN Reason: Pain Score 4-10/10 Sodium Chloride () 10 - 40 ml IV UD PRN PRN Reason: SALINE FLUSH Discharge Diet: Low fat/ Low Cholesterol, 2000 mg Sodium Diet Discharge Activity: Return to Normal Activity Home Medications: Medications to take at Discharge Aspirin [Aspirin, Baby] 81 mg PO DAILY@0800 06/01/14 Clopidogrel Bisulfate [Plavix] 75 mg PO DAILY 06/01/14 Atorvastatin Calcium [Lipitor] 40 mg PO QHS 08/31/19 Losartan Potassium [Cozaar] 25 mg PO DAILY 08/31/19 Primary Care Physician: Edgard Quintana MD [Primary Care Provider] - Please follow up with your Primary Care Physician in: within 1-2 weeks Please Follow Up With: Koby Fajardo DPM When: as scheduled on Friday, September 05 Disposition: Home Minutes spent on discharge:: 40 Patient Condition:: Stable Medical Necessity - Tobacco Use Smoking Status: Former smoker Tobacco Use: Non-smoker Meaningful Use Info Meaningful Use Diagnoses (Choose all that apply): None applicable OBSV E&M: 24900 Observation care discharge
--- NOTE | 2019-09-01 11:17 | CASEMGMT ---
Addendum entered by Tamar Sosa 09/01/19 11:45: Crutches here and given to Lebron BOUCHER at this time. Paperwork and facesheet to Mally nx [employer] targeting supervisor, at this time. Pt ready for discharge. Junior BOUCHER CM Original Note: Per therapy, pt will need a set of crutches to go home. Call to ED to obtain a set of crutches and per Alejandra in the ED, form for crutches tubed to this RN CM at this time and she states that this RN CM needs to call Nursing over the [employer] targeting supervisor to obtain crutches at this time. Call to Mally, nursing over the horizon targeting supervisor, and she states she will work on getting crutches at this time. This RN CM filled out form, physician and pt signed at this time and awaiting crutches. Junior BOUCHER CM
== END 2019-09-01 08:50 | disposition home or self-care (01) ==
LOC: ED 08:58 → PCU 11:15
PROVIDERS: Admitting Provider Internal Medicine; Emergency Provider Emergency Medicine; PCP Family Medicine; Visit Provider Internal Medicine
DX: R55 Syncope and collapse (principal); S82.841A Displaced bimalleolar fracture of right lower leg, initial encounter for closed fracture; W10.9XXA Fall (on) (from) unspecified stairs and steps, initial encounter; I25.10 Atherosclerotic heart disease of native coronary artery without angina pectoris; R00.1 Bradycardia, unspecified; D72.829 Elevated white blood cell count, unspecified; I10 Essential (primary) hypertension; Y93.89 Activity, other specified; Y92.008 Other place in unspecified non-institutional (private) residence as the place of occurrence of the external cause; Z79.899 Other long term (current) drug therapy; Z79.82 Long term (current) use of aspirin; Z79.02 Long term (current) use of antithrombotics/antiplatelets; Z95.5 Presence of coronary angioplasty implant and graft; Z87.891 Personal history of nicotine dependence
CPT/HCPCS: 29515; 36415; 70450; 71045; 72040; 72100; 73610; 73630; 80048; 80053; 81001; 84484; 85025; 87040; 93005; 96360; 96361; 97162; 97166; 99218; 99285; 99406; J7030; A4216; G0378

== ENCOUNTER → 2019-09-09 15:48 | Outpatient (CLI) | payer MEDICARE, OTHER, SELFPAY ==
[2019-08-31 12:22] VITALS: BMI 21.6
[2019-09-09 17:31] LABS: Absolute Lymphocyte Count 19.15 X10^3/uL (0.83-4.51); Absolute Neutrophil Count 1.9 X10^3/uL (2.0-7.7); Basophil# 0.03 X10^3/uL; Basophil% 0.1 % (0-1); Eosinophil# 0.05 X10^3/uL; Eosinophils% 0.2 % (0-5); Hematocrit 40.2 % (40-54); Lymphocyte # 19.15 X10^3/ul (4.0); Lymphocyte % 86.1 % (19-41); Mean Corp Hgb Conc 32.3 g/dL (32-36); Mean Corpuscular Hgb 31.7 pg (27.0-32.0); Mean Platelet Vol. 9.6 fl (6.2-12.0); Monocyte% 4.9 % (0-10); NRBC Flagged by Analyzer 0 % (0-5); Neutrophil # 1.89 X10^3/uL (2.7-7.7); Neutrophil % 8.6 % (47-70); POSITIVE DIFFERENTIAL YES; Platelet Count 227 K/mm3 (150-450); RBC Distribution Width CV 14.6 % (11.6-14.6); RBC Distribution Width SD 52.3 fl (35.1-43.9); White Blood Count 22.3 K/mm3 (4.4-11.0)
[2019-09-09 17:40] LABS: Differential Indicated SCAN CRITERIA MET
[2019-09-09 18:01] LABS: Platelet Estimate ADEQUATE (ADEQ); Red Cell Morphology N CHROM NORMAL (NORM C&C)
[2019-09-09 18:02] LABS: Anisocytosis RARE; Macrocytosis RARE
[2019-09-10 11:37] LABS: Pathologist Review Reviewed
== END ==
PROVIDERS: PCP Family Medicine; Referring Provider Family Medicine; Visit Provider Family Medicine
DX: D72.829 Elevated white blood cell count, unspecified (principal)
CPT/HCPCS: 36415; 85025

== ENCOUNTER → 2020-03-23 | Outpatient (CLI) | payer MEDICARE, OTHER, SELFPAY ==
[2019-10-05 13:32] VITALS: BMI 21.6
--- NOTE | 2020-03-23 10:20 | MRI_ITS ---
ACR Level 3 findings have been noted. An addendum which confirms receipt of the report will follow. HISTORY: lumbar spinal stenosis, PAIN AND WEAKNESS IN BACK X SEVERAL YEARS, NO KNOWN INJURY COMPARISON: 11/22/2017 TECHNIQUE: Multiplanar, multisequence MRI of the lumbar spine without IV contrast. FINDINGS: Marrow signal intensity appears low on T1-weighted images, less intense than the intervertebral discs and nearly isointense to skeletal muscle.. Correlate for anemia or evidence of other marrow replacement process. No distinct bone lesion. Straightening of lumbar lordosis again noted. T11-12 and T12-L1 without disc bulge, canal or foraminal stenosis. L1-L2: Mild disc bulging with disc osteophyte complex. Facet hypertrophy. Mild bilateral neuroforaminal narrowing. No significant canal stenosis. L2-L3: Mild disc bulging with disc osteophyte complex. Facet hypertrophy. Mild bilateral neuroforaminal narrowing. No significant canal stenosis. L3-L4: Mild diffuse disc bulging with disc osteophyte complex and facet arthropathy. Mild right and moderate left foraminal stenosis. No significant canal stenosis. L4-L5: Moderate to severe disc space narrowing with disc osteophyte complex and central disc protrusion. Facet arthropathy. Severe bilateral foraminal stenosis with probable bilateral impingement at the neural foramen. L5-S1: Severe disc space narrowing with central disc protrusion. Facet arthropathy. Severe bilateral foraminal stenosis with probable bilateral L5 nerve root impingement of the neural foramen, minimal interval change in appearance. No significant canal stenosis. MRI/Spine Lumbar (Routine) IMPRESSION: 1. Multilevel lumbar spondylosis, as detailed above. 2. Abnormal marrow signal intensity as can be seen with marrow reconversion or replacement. Further evaluation is warranted. at 2351 Reported and signed by: Akilah Wylie MD Electronically Signed: Akilah Wylie MD at 23:51 EDT Tel , Service support ,
== END | disposition home or self-care (01) ==
LOC: MRI 10:11
PROVIDERS: PCP Family Medicine; Referring Provider Anesthesiology Pain Medicine; Visit Provider Anesthesiology Pain Medicine
DX: M48.07 Spinal stenosis, lumbosacral region (principal)
CPT/HCPCS: 72148

== ENCOUNTER → 2020-06-13 09:31 | Outpatient (CLI) | payer MEDICARE, OTHER, SELFPAY ==
[2020-03-28 13:29] VITALS: BMI 20.2
[2020-06-13 12:09] LABS: Hematocrit 41.2 % (40-54); Mean Corp Hgb Conc 31.6 g/dL (32-36); Mean Corpuscular Hgb 33.8 pg (27.0-32.0); Mean Platelet Vol. 9.5 fl (6.2-12.0); Platelet Count 190 K/mm3 (150-450); RBC Distribution Width CV 14.3 % (11.6-14.6); RBC Distribution Width SD 56.3 fl (35.1-43.9); Red Blood Count 3.85 M/mm3 (4.6-6.2); White Blood Count 21.1 K/mm3 (4.4-11.0)
[2020-06-13 12:40] LABS: ALB/GLOB Ratio 1.5 RATIO (0.9-2.4); AST(SGOT) 31 U/L (15-37); Alanine Aminotransfer ALT/SGPT 42 U/L (16-61); Albumin, Serum 3.7 g/dL (3.2-5.0); Alkaline Phosphatase 93 U/L (45-117); Anion Gap 4 (5-15); BUN 17 mg/dL (7-18); BUN/Creat Ratio 18.7 RATIO (10-20); Calcium,Total 8.2 mg/dL (8.5-10.1); Chloride 107 mmol/L (98-107); Cholesterol 174 mg/dL (200); Creatinine, Serum 0.91 mg/dL (0.70-1.30); EST Glomerular Filtration Rate 88 mL/min (>60); Est Glom Filt Rate - Afr Amer 106 mL/min (>60); Globulin 2.4 g/dL (2.2-4.2); Glucose 96 mg/dL (74-106); High Density Lipoprotein 56 mg/dL; PSA,Total - Annual Screen 1.44 ng/mL (0.00-4.00); Potassium 3.8 mmol/L (3.5-5.1); Protein, Total 6.1 g/dL (6.4-8.2); Sodium Level 142 mmol/L (136-145); Triglycerides 70 mg/dL; Very Low Density Lipoprotein 14 mg/dL (5-40)
== END ==
PROVIDERS: PCP Family Medicine; Referring Provider Family Medicine; Visit Provider Family Medicine
DX: C91.10 Chronic lymphocytic leukemia of B-cell type not having achieved remission (principal); I25.10 Atherosclerotic heart disease of native coronary artery without angina pectoris; Z12.5 Encounter for screening for malignant neoplasm of prostate
CPT/HCPCS: 36415; 80053; 80061; 84153; 85027; G0103

== ENCOUNTER → 2020-12-01 13:20 | Outpatient (CLI) | payer MEDICARE, OTHER, SELFPAY ==
[2020-09-19 13:51] VITALS: BMI 21.0
--- NOTE | 2020-12-01 13:22 | CT_ITS ---
STUDY: LOW DOSE CT LUNG CANCER SCREENING REASON FOR EXAM: Male, 70 years old. Former smoker. The patient smoked 1 pack per day for 35 years. Patient quit 10 years ago. RADIATION DOSAGE (If Supplied By Facility): CTDIvol = ( 2.01 ) mGy, DLP = ( 79.27 ) mGycm TECHNIQUE: No contrast was administered. Low dose technique was utilized (average mAS-38 and kVp 120). 1.25 mm axial source images with a slice interval of 1.25-mm were reconstructed in lung windows. 2.5 mm axial source images with a slice interval of 2.5-mm were reconstructed in lung windows. 5.0 mm axial source images with a slice interval of 5.0-mm were reconstructed in soft tissue windows. Nodule measured using lung windows on PACS and/or independent workstation with automated measurement of minimum and maximum diameter. Nodule measurement reported as average diameter rounded to the nearest whole number. Growth is defined as an increase ins size of greater than 1.5 mm. COMPARISON: Comparison is made with prior examination of 08/12/2019. NODULES: No suspicious pulmonary nodules are seen. Emphysema: Hyperinflation. Mild emphysematous changes are seen. Endobronchial lesion: None Aorta: Mild calcific plaque of the aortic arch. Coronary arteries: Coronary artery calcification. Heart: Unremarkable Pulmonary artery: Unremarkable Mediastinal nodes: Small benign appearing mediastinal lymph nodes. Other chest and abdominal findings: Degenerative changes of the thoracic vertebrae. CT/Low Dose CT Lung Screening IMPRESSION: Lung-RADS category 2 - Continue annual screening with LDCT in 12 months. IMPORTANT NOTES FOR USE: ACR Lung-RADS Version 1.1 Assessment Categories Release Date: 2018 Category: Coded 0-4 bases on nodule(s) with highest degree of suspicion. Negative screen is defined as categories 1 and 2; a positive screen is defined as categories 3 and 4. Category 3 and 4A nodules that are unchanged on interval CT should be coded as category 2, and individuals returned to screening in 12 months. Category 4X: Category 3 or 4 nodules with additional imaging findings that increase the suspicion of lung cancer, such as spiculation, GGN that doubles in size in 1 year, enlarged lymph notes, etc. Category Modifiers: S (significant finding unrelated to lung cancer) Electronically Signed: Rafi Ramos MD at 14:11 EDT , Service support ,
== END ==
PROVIDERS: PCP Family Medicine; Referring Provider Family Medicine; Visit Provider Family Medicine
DX: Z87.891 Personal history of nicotine dependence (principal)
CPT/HCPCS: 71271

== ENCOUNTER 2021-02-07 08:49 | Day surgery (SDC) | payer MEDICARE, OTHER, SELFPAY ==
[2021-01-09 13:54] VITALS: BMI 21.0
--- NOTE | 2021-02-07 | IMM_PTH ---
PATIENT: GIACOMO MADRIGAL LOC: [facility] U#:[id number] AGE/SX: 70/M ROOM: RE02/07/[address]: Dr. Nemesio Tolentino MD : 1950 BED: DIS: 02/07/2021 SPEC #: [id number] RECD: 02/09/21 11:19 STATUS: VAUGHN REQ #: [id number] DEMETRI: 02/07/21 00:[address]: Nemesio Tolentino DEPT: IMMUNOHISTOCHEMISTRY RECD BY: Carolina Abernathy ENTERED: 02/09/21 11:23 SP TYPE: IMMUNO OTHR DR: Dr. Milind Quintana MD Tissues: B - Skin of forearm, NOS C - Skin of forehead Procedures: SMA (add) CD31 (add) CD34 (add) DESMIN (add) KI-67 (add) FACTOR VIII (add) MELAN-A (add) Vimentin (initial) S-100 (add) PHYSICIAN & INSTITUTION [address] [address] SPECIMEN INFORMATION: Tissue Source: B ? Left distal arm, C ? Right medial forehead Clinical Info: 6 mm soft tissue mass left proximal dorsal forearm; 6 mm soft tissue mass right medial forehead close to medial eyebrow Specimen Number: [id number] B & C CPT code: 80656 x2, 58221 x16 METHODOLOGY: Deparaffinized sections of prefer/formalin-fixed tissue or PAP/DQ stained slides are incubated with monoclonal/polyclonal antibodies/oligonucleotide probes. Localization is made via biotin free immunoperoxidase method. Appropriate controls are performed and reacted as expected. Results on target cell population are indicated in the following table: RESULTS: ANTIBODY / CLONE RESULT Block B Vimentin (V9) positive CD31 (ALYSIA/70A) negative Factor VIII (R Ag) negative CD34 (QBEnd-10) positive Actin (1A4) negative Desmin (CE-R-11) negative Melan A (A103) negative S-100 (4C4.9) positive Ki-67 (30-9) positive, < 1% (rare cells) Block C Vimentin (V9) positive CD31 (ALYSIA/70A) negative Factor VIII (R Ag) negative CD34 (QBEnd-10) positive Actin (1A4) negative Desmin (CE-R-11) negative Melan A (A103) negative S-100 (4C4.9) positive Ki-67 (30-9) positive, <1% (rare cells) These tests were developed and their performance characteristics determined by [facility]. They may not have been cleared or approved by the U.S. Food and Drug Administration. The FDA has determined that such clearance or approval is not necessary. The above immunohistochemical/dualISH markers are ordered and reviewed by the Pathologist. INTERPRETATION: B. Left distal arm, biopsy: Consistent with neurofibroma. C. Right medial forehead, biopsy: Consistent with neurofibroma. SJ:kemi 02/12/2021
--- NOTE | 2021-02-07 | LES_PTH ---
PATIENT: GIACOMO MADRIGAL LOC: [facility] [place] U#:[id number] AGE/SX: 70/M ROOM: RE02/07/[address]: Dr. Nemesio Tolentino MD : 1950 BED: DIS: 02/07/2021 SPEC #: [id number] RECD: 02/07/21 11:54 STATUS: VAUGHN MATTHEW #: [id number] DEMETRI: 02/07/21 00:[address]: Nemesio Tolentino DEPT: SURGICAL PATHOLOGY RECD BY: Carolina Abernathy ENTERED: 02/07/21 12:19 SP TYPE: Lesion OTHR DR: Dr. Milind Quintana MD Tissues: A - Skin of arm B - Skin of arm C - Skin of forehead Procedures: Frozen Section (charge) Surgery Specimen Level IV HEADER OPERATION: Excision cutaneous horn lesion left lateral distal arm PRE-OP DIAGNOSIS: 1.2 cm cutaneous horn lesion left lateral distal arm; 6 mm soft tissue mass left proximal dorsal forearm; 6 mm soft tissue mass right medial forehead close to medial eyebrow TISSUE SUBMITTED: A - cutaneous horn lesion left lateral distal arm, suture at 12 o?clock, FS, B??soft tissue mass left proximal dorsal forearm, C - soft tissue mass right medial forehead close to medial eyebrow FROZEN SECTION DIAGNOSIS A. Left distal arm, biopsy: Consistent with benign verrucous keratosis. Negative for malignancy. CHACHA:kemi 02/07/2021 MICROSCOPIC DIAGNOSIS A. Left distal arm lesion, biopsy: Consistent with benign verrucous keratosis. Negative for malignancy. B. Left proximal dorsal forearm lesion, biopsy: Consistent with neurofibroma. See comment. C. Right medial forehead lesion, biopsy: Consistent with neurofibroma. See comment. CHACHA:kemi 02/09/2021 COMMENT B & C. Immunohistochemistry ([id number]) supports the above diagnosis. MICROSCOPIC DESCRIPTION Slides are reviewed. GROSS DESCRIPTION A - Received fresh for frozen section diagnosis labeled with the patient's name is a specimen designated left distal arm. The specimen consists of a piece of byers-brown skin measuring 1 x 1 x 0.3 cm. The specimen is oriented by a suture at 12 o?clock. The specimen is inked as follows: 12 o?clock - black, 6 o?clock - blue. The specimen is bisected and submitted entirely for frozen section diagnosis in one cassette. / :kemi 02/07/21 B - Received in fixative is one container labeled with the patient's name and designated soft tissue mass left proximal dorsal forearm. The specimen consists of two pieces of byers-brown skin. One of the pieces is previously, partially bisected measuring 1.5 x 0.3 x 0.3 cm and 1.5 x 0.5 x 0.4 cm. The entire specimen is submitted in one cassette. / :kemi 02/08/21 C - Received in fixative is one container labeled with the patient's name and designated soft tissue mass right medial forehead, close to medial eyebrow. The specimen consists of three variable sized pieces of skin and soft tissue that in aggregate measure 1.5 x 0.5 x 0.3 cm. The entire specimen is submitted in one cassette. / :kemi 02/08/21 TC:1 CPT: 94897 x3, 65754
--- NOTE | 2021-02-07 07:32 | PCM.HP.BLA ---
History and Physical Date of Admission: 02/07/21 HISTORY OF PRESENT ILLNESS 70 year old man presents for evaluation for TBSE. He has concerns about a nodular lesion left lateral distal arm that has increased in size over the last several months and has developed a cutaneous horn component. He also has concerns about soft tissue masses on his proximal dorsal left forearm and right medial forehead that have increased in size over the last several months. He denies trauma. He denies fever. He denies any bleeding from these lesions. He presents at this time for further evaluation and treatment. PAST MEDICAL HISTORY A-fib Adjustment disorder with anxiety DDD (degenerative disc disease), lumbar Former smoker Gastrointestinal problem High cholesterol Kidney stones Mass of left forearm Neoplasm of skin of upper arm Subcutaneous mass of head Syncope and collapse Torus fracture of lower end of unspecified fibula, initial encounter for closed fracture Vascular disease Vision problems PAST SURGICAL HISTORY appendectomy cholecystectomy heart artery stent ALLERGIES No Known Allergies MEDICATIONS aspirin clopidogrel atorvastatin losartan nitroglycerin [id number]-[id number]-[id number]-lycopen-lutein hydrocodone-acetaminophen triamcinolone acetonide nasal spray aerosol FAMILY HISTORY Father - Heart disease Mother - Cancer of liver, Pancreatic cancer Sister - Heart disease SOCIAL HISTORY Smoking Status: Former smoker alcohol intake: current substance use type: does not use REVIEW OF SYSTEMS General - Denies fever, fatigue, and weight loss. Eyes - Denies cataracts and glaucoma. ENT - Denies nasal congestion and sore throat. Has chronic sinus problems. Endocrine - Denies excessive thirst and urination. Skin - Denies skin cancer. Has enlarging lesions left lateral distal arm, left proximal dorsal forearm, and right medial forehead. Musculoskeletal - Denies joint pain, joint stiffness, weakness of muscles and joints, and arthritis. Has back pain. Neuro - Denies headaches. Cardiovascular - Denies chest pain, fatigue, and shortness of breath with exertion. Psych - Denies anxiety and depression. Respiratory - Denies chronic cough and shortness of breath. Patient is a former smoker. Gastrointestinal - Denies nausea, vomiting, diarrhea, and constipation. Hematologic - Denies abnormal bruising and bleeding. Genitourinary - Denies hematuria and urinary frequency. PHYSICAL EXAMINATION General - Alert and Oriented. HEENT - PERRL. EOMI. Throat is clear. On the right medial forehead close to the medial eyebrow, is a soft tissue mass that measures 6 mm. It is mobile. No evidence of infection. No sensory deficits noted on forehead. Mild discomfort when bumped. No ulceration. He can elevate his eyebrows symmetrically. No other suspicious lesions noted. Neck - Supple and nontender. No cervical adenopathy. No suspicious lesions noted. Lungs - Clear to auscultation. Heart - Regular rate and rhythm. Abdomen - Soft and nondistended. Extremities - FROM. No axillary adenopathy. Radial pulses are palpable. On the left lateral distal arm is a cutaneous horn lesion that measures 1.2.cm. It is nodular with irregular borders. No ulceration. Lesion is nontender. On the left proximal dorsal forearm is a soft tissue mass that measures 6 mm. It is mobile, No evidence of infection. No sensory deficits noted on the left forearm. There is mild discomfort when bumped. No ulceration. No other suspicious lesions noted. Neuro - CN II-XII grossly intact. Psych - Normal mood and affect ASSESSMENT 1. 1.2 cm cutaneous horn lesion left lateral distal arm. 2. 6 mm soft tissue mass right medial forehead close to medial eyebrow. 3. 6 mm soft tissue mass left proximal dorsal forearm. 4. Former smoker. PLAN Recommend excision of the cutaneous horn lesion left lateral distal arm as a full thickness excision and send it to Pathology for analysis to rule out carcinoma. If carcinoma is present, then further excision will be done with local skin flap or skin graft reconstruction. For the two soft tissue masses (left proximal dorsal forearm and right medial forehead close to medial eyebrow), I recommend excision of these masses and send them to Pathology for analysis to rule out carcinoma. Depending on how much overlying skin that may need to be removed because it is adherent to the soft tissue mass, a local skin flap may be necessary for reconstruction. Surgery will be done under local anesthesia with IV sedation on an outpatient basis. Patient was informed of the risks and complications of the procedure including alternatives to surgery. These were discussed with the patient personally. Patient voices understanding and wishes to proceed. Some of the risks and complications were included in a form from the [employer]. We discussed the current risks associated with COVID-19. While it is understood that there is a community spread of COVID-19, the risk of [place] COVID-19 while at [facility] ([facility]) is very low; however, the risk cannot be completely mitigated because of the community spread of the disease. We discussed in detail the risk of exposure to and/or potential harm posed by the COVID-19 virus with having a surgery/procedure at this time versus the risk of delaying the surgery/procedure. It is not possible to know either the risk of delaying the surgery or procedure or chance of getting an infection with perfect accuracy, but a joint decision was made to proceed at this time with the scheduled surgery/procedure as indicated on the consent form. Patient was notified that we will need to comply with any screening or testing WC wishes to perform or that surgery may be delayed for any positive results.
[2021-02-07 09:14] VITALS: BP 129/72; PULSE 53; RESP 16; TEMP 36.2; O2SAT 100; BMI 20.2
[2021-02-07] MEDS: Lactated Ringers 1,000 ML 100 ML IV ×2 (09:25→12:00)
[2021-02-07] MEDS: Lidocaine 1% /Epi 1:100 (20ml) 20 ML Vial (13:01)
[2021-02-07] MEDS: Mupirocin Ointment 22gm Tube 1 APPLIC (13:01)
--- NOTE | 2021-02-07 13:07 | PCM.OPRPT ---
Problems Associated Problem List Diagnoses (1) Subcutaneous mass of head: (2) Mass of left forearm: (3) Neoplasm of skin of upper arm: (4) Verrucous keratosis: (5) Former smoker: Report of Operation Date of Procedure: 02/07/21 Pre-Operative Diagnosis: 1. 1.2 cm cutaneous horn lesion left lateral distal arm. 2. 6 mm soft tissue mass right medial forehead close to medial eyebrow. 3. 6 mm soft tissue mass left proximal dorsal forearm. 4. Former smoker. Post-Operative Diagnosis: 1. 1.2 cm verrucous keratosis left lateral distal arm. 2. 6 mm soft tissue mass right medial forehead close to medial eyebrow. 3. 6 mm soft tissue mass left proximal dorsal forearm. 4. Former smoker. Surgery/Procedure Performed:: 1. Excision 1.2 cm verrucous keratosis left lateral distal arm with rhomboid transposition skin flap reconstruction (3.92 cm2). 2. Excision 6 mm soft tissue mass right medial forehead close to medial eyebrow with horizontal rectangular advancement skin flap reconstruction (1.60 cm2). 3. Excision 6 mm soft tissue mass left proximal dorsal forearm with rhomboid transposition skin flap reconstruction (2 cm2). Description of Surgical Findings:: 70 year old man presents for evaluation for TBSE. He has concerns about a nodular lesion left lateral distal arm that has increased in size over the last several months and has developed a cutaneous horn component. He also has concerns about soft tissue masses on his proximal dorsal left forearm and right medial forehead that have increased in size over the last several months. He denies trauma. He denies fever. He denies any bleeding from these lesions. Patient was informed of the risks and complications of the procedure including alternatives to surgery. These were discussed with the patient personally. Patient voices understanding and wishes to proceed. Some of the risks and complications were included in a form from the [employer]. Frozen section left lateral distal arm - verrucous keratosis and no carcinoma seen. Surgeon: Nemesio Tolentino quality assurance monitor chassis: Jacob Schreiber Type of Anesthesia: General Specimen's removed: 1. 1.2 cm cutaneous horn lesion left lateral distal arm to Pathology as a frozen section. 2. 6 mm soft tissue mass right medial forehead close to medial eyebrow to Pathology. 3. 6 mm soft tissue mass left proximal dorsal forearm to Pathology. Drains: None. Estimated Blood Loss (mL): 10. Description of Procedure: Patient was taken to OR in supine position and was placed under general anesthesia. The forehead and left upper extremity were prepped and draped in the usual fashion. SCD's were placed for DVT prophylaxis. Perioperative antibiotics were given intravenously. Using xylocaine with epinephrine, the lesions left lateral distal arm, left proximal dorsal forearm, and right medial forehead close to medial eyebrow were infiltrated. After waiting 5 minutes for the anesthetic to take effect, I made a circular incision over the cutaneous horn lesion left lateral distal arm down into the subcutaneous tissue as a full thickness excision. A suture was marked at 12 oclock position for pathology orientation. The lesion was sent to Pathology as a frozen section for analysis to rule out carcinoma. Frozen section showed a verrucous keratosis and no carcinoma seen. The initial excision was done with a 1 mm margin in all directions thus making it a 1.4 cm excision. Hemostasis was obtained with electrocautery. I then went to the left proximal dorsal forearm soft tissue mass and made a longitudinal elliptical excision into the subcutaneous tissue. The mass had some encapsulation with some fat tissue that looked a little darker than a typical fatty lipoma. It was adherent to the overlying skin so I had to excise that as well. It was a 1 cm wound. The mass was sent to Pathology for analysis to rule out carcinoma. If carcinoma is present then further excision will be necessary with skin flap or skin graft reconstruction. Hemostasis was obtained with electrocautery. I then went to the right medial forehead close to the medial eyebrow and made a horizontal elliptical excision into the subcutaneous tissue. The mass had some encapsulation with some fat tissue that looked a little darker than a typical fatty lipoma. It was adherent to the overlying skin so I had to excise it as well. It was an 8 mm wound. The mass was sent to Pathology for analysis to rule out carcinoma. If carcinoma is present then further excision will be necessary with skin flap or skin graft reconstruction. Hemostasis was obtained with electrocautery. Next the wounds were closed as I went to the left lateral distal arm wound first. It was close to the elbow so a rhomboid flap was designed adjacent to the wound. Incision was made into the subcutaneous tissue at the level of the fascia as a subcutaneous pedicle and easily transposed into the wound defect with minimal tension and minimal distortion. Hemostasis was obtained with electrocautery. The wound was closed after the rhomboid flap was transposed into the defect with 4-0 Monocryl interrupted sutures for the deep dermis and subcutaneous tissue. The skin was approximated with 4-0 Prolene simple interrupted sutures. The size of the defect and the size of the flap needed to close the defect was 3.92 cm2. I then went to the left proximal dorsal forearm wound. It was also close to the elbow so a rhomboid flap was designed adjacent to the wound. Incision was made into the subcutaneous tissue at the level of the fascia as a subcutaneous pedicle and easily transposed into the wound defect with minimal tension and minimal distortion. Hemostasis was obtained with electrocautery. The wound was closed after the rhomboid flap was transposed into the defect with 4-0 Monocryl interrupted sutures for the deep dermis and subcutaneous tissue. The skin was approximated with 4-0 Prolene simple interrupted sutures. The size of the defect and the size of the flap needed to close the defect was 2 cm2. I then went to the right medial forehead close to medial eyebrow wound. It was close to the eyebrow so a horizontal layered closure would cause to much upward distortion on the eyebrow leading to asymmetry. So I decided on a horizontal rectangular advancement flap to close the defect which places the tension horizontally and not vertically. So there will be minimal distortion on the eyebrow. A horizontal rectangular flap was designed adjacent to the wound. Incision was made into the subcutaneous tissue at the level of the muscle as a subcutaneous pedicle and easily transposed into the wound defect with minimal tension and minimal distortion. Hemostasis was obtained with electrocautery. The wound was closed after the horizontal rectangular flap was advanced into the defect with 5-0 Monocryl interrupted sutures for the deep dermis and subcutaneous tissue. The skin was approximated with 6-0 Prolene simple interrupted sutures. The size of the defect and the size of the flap needed to close the defect was 1.60 cm2. Steri-Strips were applied followed by antibiotic ointment and an Op-Site dressing. For the two incisions on the left upper extremity (left lateral distal arm and left proximal dorsal forearm), antibiotic ointment was applied followed by gauze and a compression betty wrap. Patient tolerated the procedure well and was sent to PACU in satisfactory condition. Patient will be sent home on antibiotics and pain medication. He will keep his head elevated during the initial postoperative period. Patient will followup in a week for a wound check and for discussion of the pathology report and for removal of the sutures on the right medial forehead. The left upper extremity sutures will be removed in two weeks. Grafts/Implants Used: None. Complications None. Admit VTE Documentation VTE Present on Admission: No VTE Mechan Device Prophylaxis: SCD's VTE Pharm Prophylaxis ordered?: No Addendum Addendum: Surgery Charges CPT - 66675 ICD-10 - L82.1, D49.2, Z87.891 32733 R22.0, Z87.891 72434 R22.0, Z87.891 29044 R22.32, Z87.891 28881 R22.32, Z87.891
[2021-02-07 13:27] VITALS: BP 129/72; BP 147/89; PULSE 69; RESP 14; TEMP 36.2; O2SAT 99
[2021-02-07 13:30] VITALS: BP 129/72; BP 147/89; PULSE 71; RESP 16; O2SAT 99
[2021-02-07 13:45] VITALS: BP 129/72; BP 151/93; PULSE 68; RESP 16; O2SAT 98
[2021-02-07 14:01] VITALS: BP 129/72; BP 138/83; PULSE 56; RESP 16; TEMP 36.1; O2SAT 100
--- NOTE | 2021-02-07 14:24 | PCM.DC ---
Discharge Instructions Diet Discharge Diet: No restrictions Activity Discharge Activity: May Not Drive (if taking narcotics.), May Shower (in two days.) and - (keep head elevated. No heavy lifting. Keep left arm elevated.) May shower in (days): 2 May resume sexual activity in: No Restrictions Ice area for (Minutes): 5 (as needed for swelling.) Weight Bearing Status: Weight bearing as tolerated Lifting Restrictions: 10 lbs. Keep extremity elevated above heart level: Left Arm and - (elevate head.) Dressing / Incision Call your doctor if your incision/area has: Continuous Slow Oozing, Sudden Increased Bleeding, Increased Pain/ Swelling, Increased Redness, Foul Smelling Discharge and Swelling at the incision site Call your doctor if you observe: Fever of 101 or Higher, Coldness, Increased Pain, Shortness of breath, Chest pain, Calf discomfort and Uncontrolled pain Suture Line Care: - (after operative dressing is removed, apply antibiotic ointment to the suture line daily.) Change Dressing in: 2 days (may change the gauze on the left upper extremity incisions. Reapply the betty wrap.) Remove Dressing in: 2 days (the forehead dressing.) Cleanse incision/area with: - (may get incisions wet in the shower in two days.) Follow Up Care Please Follow Up With: Nemesio Tolentino MD When: one week. call [phone] for appt. Test Results: Test results from this visit will be discussed in further detail at your follow-up appointment, if applicable. Discharge Plan Admission Primary Reason for Your Visit: excision lesions Attending Provider: Nemesio Tolentino Primary Care Provider: Edgard Quintana Discharge Orders/Prescriptions Prescriptions: New clindamycin HCl [Cleocin HCl] 300 mg capsule 300 mg PO TID 3 Days Qty: 9 RF: 0 oxycodone-acetaminophen [Percocet] 5-325 mg tablet 1 tab PO Q6H PRN (Reason: pain (scale score 7-10)) 5 Days Qty: 20 RF: 0 L.acidoph,saliva-B.bif-S.therm [Acidophilus Probiotic Blend] 175 mg capsule 1 cap PO DAILY 5 Days Qty: 5 RF: 0 Continued triamcinolone acetonide [Nasacort] 55 mcg aerosol,spray 1 spray intranasal DAILY RF: 0 clopidogrel 75 MG tablet 75 mg PO DAILY RF: 0 atorvastatin 40 MG tablet 40 mg PO QHS RF: 0 losartan 25 MG tablet 25 mg PO DAILY RF: 0 nitroglycerin 0.4 MG tablet, sublingual 0.4 mg sublingual PRN PRN (Reason: angina) RF: 0 rbqxkypj-gny-QS-lycopen-lutein 1 EACH tablet 1 ea PO DAILY RF: 0 Held hydrocodone-acetaminophen 5-325 mg tablet 1 tab PO Q8H PRN (Reason: Pain) RF: 0 Hold Instructions: Resume on 02/11/21. aspirin 81 MG tablet,chewable 81 mg PO DAILY@0800 RF: 0 Hold Instructions: Resume on 02/12/21. Referrals / Follow Up: Edgard Quintana MD [Primary Care Provider] - Disposition Disposition (needs filled in before D/C Order can be placed): Home, Self Care
[2021-02-07 15:27] VITALS: BP 129/72; BP 144/80; PULSE 65; RESP 16; TEMP 36.8; O2SAT 99
== END 2021-02-07 15:29 | disposition home or self-care (01) ==
LOC: SDC 08:50 → AC 08:51
PROVIDERS: PCP Family Medicine; Visit Provider Surgery
PROC: (CPT 14020; principal; 2021-02-07 11:15)
DX: L57.0 Actinic keratosis (principal); L85.8 Other specified epidermal thickening; R22.32 Localized swelling, mass and lump, left upper limb; I48.91 Unspecified atrial fibrillation; E78.00 Pure hypercholesterolemia, unspecified; I10 Essential (primary) hypertension; Z79.899 Other long term (current) drug therapy; Z79.02 Long term (current) use of antithrombotics/antiplatelets; Z87.891 Personal history of nicotine dependence
CPT/HCPCS: 00300; 14020; 14040; 21011; 25075; 88305; 88331; 88341; 88342; J7120; J2405

== ENCOUNTER 2021-09-20 10:18 | Outpatient (CLI) | payer MEDICARE, OTHER, SELFPAY ==
[2021-09-26 12:06] LABS: Fats, Neutral Normal (.); Fats, Total Normal (.)
== END 2021-09-20 23:59 | disposition home or self-care (01) ==
PROVIDERS: PCP Family Medicine; Referring Provider Internal Medicine Gastroenterology; Visit Provider Internal Medicine Gastroenterology
DX: R19.7 Diarrhea, unspecified (principal)
CPT/HCPCS: 82705

== ENCOUNTER → 2022-01-07 | Outpatient (CLI) | payer MEDICARE, OTHER, SELFPAY ==
--- NOTE | 2022-01-07 10:41 | ART_ITS ---
Reason For Study: atherosclerosis Procedure A bilateral lower extremity continuous wave Doppler with analog waveform analysis and ankle brachial indexes. Left Segmental Pressures Left brachial= 130mmHg. Left posterior tibial artery = 148mmHg. Left dorsalis pedis artery = 136mmHg. The left dorsalis pedis waveforms are triphasic. The left posterior tibial artery waveforms are triphasic. Right Segmental Pressures Right brachial= 133mmHg. Right posterior tibial artery = 110mmHg. Right dorsalis pedis artery = 109mmHg. The right dorsalis pedis waveforms are biphasic. The right posterior tibial artery waveforms are biphasic. Indices The right ankle brachial index by the dorsalis pedis is .82. The right ankle brachial index by the posterior tibial artery is .83. The left ankle brachial index by the dorsalis pedis is 1.02. The left ankle brachial index by the posterior tibial artery is 1.11. VL/Ankle Brachial Index Interpretation Summary Right lower extremity with mild occlusive disease with biphasic flow and an MARY GRACE 0.83. Left lower extremity normal at rest with triphasic flow and an MARY GRACE 1.11. Ordering Physician: Ar Leija Performed By: Cecil Villegas RVT
== END | disposition home or self-care (01) ==
LOC: CVS 10:38
PROVIDERS: PCP Family Medicine; Referring Provider Surgery Vascular Surgery; Visit Provider Surgery Vascular Surgery
DX: I70.213 Atherosclerosis of native arteries of extremities with intermittent claudication, bilateral legs (principal); M79.606 Pain in leg, unspecified
CPT/HCPCS: 93922

== ENCOUNTER → 2022-01-14 | Outpatient (CLI) | payer MEDICARE, OTHER, SELFPAY ==
--- NOTE | 2022-01-14 14:13 | CT_ITS ---
STUDY: CT Abdomen And Pelvis W/ Contrast Injection 01/14/2022 5:15 PM REASON FOR EXAM: Male, 71 years old. ABDOMINAL PAIN Pain, abdomen Technologist Notes ? BILAT HERNIA, RT SIDE IS WORSE THAN LT, HTN, CLL-NO TREATMENT, KS WITH STENTS, SURG-APPY, MYA TECHNIQUE: Transaxial images were obtained with Oral and amp; IV Readi-CAT 100mL Isovue-370 intravenous contrast. Individualized dose optimization techniques were used for this CT. COMPARISON: 06/01/2014 FINDINGS: There are atherosclerotic calcifications of visualized coronary arteries. The visualized portions of the heart are within normal limits. There is intrahepatic ductal dilation. There are surgical clips in the gallbladder fossa consistent with a prior cholecystectomy. Unremarkable spleen. Unremarkable pancreas. Unremarkable bilateral adrenal glands. Non obstructive 2 mm right renal parenchymal stones. No acute findings of the left kidney. Unremarkable visualized stomach. Unremarkable small intestine. Unremarkable colon. There is non-visualization of the appendix. There is moderate diffuse narrowing. Unremarkable inferior vena cava. Enlarged retroperitoneal lymph nodes. Unremarkable urinary bladder. There is enlargement of the prostate gland.There are prostatic calcifications. Inguinal adenopathy. Multiple mesenteric lymph nodes. There is a left inguinal hernia containing fluid. There are diffuse degenerative changes of the visualized lumbar spine. Sclerotic focus in the pelvic bones. There is bilateral neural foraminal stenosis at L4-5 and L5-S1. CT/Abdomen/Pelvis WITH Contrast IMPRESSION: (NOT LISTED IN ORDER OF SIGNIFICANCE) There is moderate retroperitoneal lymphadenopathy which is new. Inguinal adenopathy. This is new. Lymphoma should be considered. Non obstructive 1 to 2 mm right renal parenchymal stones. There is a left inguinal hernia containing fluid. There are multiple sclerotic densities in the osseous structures. These may represent multiple bone islands. However, other etiologies such as metastatic disease cannot be excluded. Other findings as above. Electronically Signed: Lg Carmona MD at 17:19 EDT ,
[2022-01-14 14:45] LABS: CREATININE FINGERSTICK < 0.9 mg/dL (0.70-1.30); EGFR FINGERSTICK > 60.0000 mL/min (>60)
== END | disposition home or self-care (01) ==
LOC: CT 14:12
PROVIDERS: PCP Family Medicine; Referring Provider Surgery; Visit Provider Surgery
DX: R10.9 Unspecified abdominal pain (principal)
CPT/HCPCS: 74177; Q9967

== ENCOUNTER 2022-02-14 09:28 | Day surgery (SDC) | payer MEDICARE, OTHER, SELFPAY ==
[2022-02-07 09:30] LABS: Absolute Lymphocyte Count 5.77 X10^3/uL (0.83-4.51); Basophil# 0.01 X10^3/uL; Basophil% 0.1 % (0-1); Eosinophil# 0.04 X10^3/uL; Eosinophils% 0.6 % (0-5); Hematocrit 41.4 % (40-54); Hemoglobin 13.8 g/dL (13.0-16.5); Lymphocyte # 5.77 X10^3/ul (0.83-4.51); Mean Corp Hgb Conc 33.3 g/dL (32-36); Mean Corpuscular Hgb 32.5 pg (27.0-32.0); Mean Corpuscular Volume 97.4 fL (80-94); Mean Platelet Vol. 8.7 fl (6.2-12.0); Monocyte# 0.06 X10^3/uL; Monocyte% 0.9 % (0-10); NRBC Flagged by Analyzer 0.3 % (0-5); Neutrophil # 0.97 X10^3/uL (2.7-7.7); POSITIVE DIFFERENTIAL YES; POSITIVE MORPHOLOGY YES; Platelet Count 173 K/mm3 (150-450); RBC Distribution Width CV 13.7 % (11.6-14.6); RBC Distribution Width SD 48.6 fl (35.1-43.9); Red Blood Count 4.25 M/mm3 (4.6-6.2)
[2022-02-07 09:31] LABS: Differential Indicated SCAN CRITERIA MET
[2022-02-07 09:45] LABS: ALB/GLOB Ratio 1.9 RATIO (0.9-2.4); AST(SGOT) 34 U/L (15-37); Alanine Aminotransfer ALT/SGPT 40 U/L (16-61); Albumin, Serum 3.9 g/dL (3.2-5.0); Alkaline Phosphatase 76 U/L (45-117); Anion Gap 5 (5-15); BUN 17 mg/dL (7-18); BUN/Creat Ratio 19.6 RATIO (10-20); Chloride 108 mmol/L (98-107); Creatinine, Serum 0.87 mg/dL (0.70-1.30); EST Glomerular Filtration Rate 92 mL/min (>60); Est Glom Filt Rate - Afr Amer 111 mL/min (>60); Globulin 2.1 g/dL (2.2-4.2); Glucose 100 mg/dL (74-106); LDH 276 U/L (87-241); Sodium Level 142 mmol/L (136-145)
[2022-02-07 10:01] LABS: Differential Comment SCANNED; Reactive Lymphocyte 3+
[2022-02-07 17:26] LABS: Xtra Tube EP Lab EXTRA TUBE
[2022-02-14 10:06] VITALS: BP 112/71; PULSE 51; RESP 16; TEMP 36.6; O2SAT 100; BMI 18.8
[2022-02-14] MEDS: Lactated Ringers 1,000 ML 15 ML IV ×2 (10:14→13:00)
--- NOTE | 2022-02-14 11:02 | HP.PCM_ITS ---
History and Physical Date of Service:? 01/07/22 MR#: [id number] Acct: [id number] Name:? GIAOCMO MADRIGAL Rep #: [id number] : 1950 ? ? Provider: Dr. Marcelo Escamilla MD Age/Sex:? 71/M ? ? Location: [facility] Status: Signed Intake Vital Signs ? 01/08/2208:18 Height 5 ft 11 in Weight: 139 lb BMI 19.3 BP 133/82 H Blood Pressure Location Rt brachial Position Sitting Respiration 16 Pulse 59 L Pulse Source Monitor Temp 97.7 F L Temp Source Temporal Pulse Oximetry (%) 97 Oxygen Delivery Method room air Intake Visit Reasons:?R INGUINAL HERNIA Chief Complaint: Right inguinal hernia Pm Technician Required: No Is patient in pain?: No Allergies No Known Allergies Allergy (Verified 01/07/22 08:19) Medications aspirin 81 mg chewable tablet 81 mg PO DAILY@0800 06/01/14 [History Confirmed 01/07/22] clopidogrel 75 mg tablet 75 mg PO DAILY 06/01/14 [History Confirmed 01/07/22] atorvastatin 40 mg tablet 40 mg PO QHS 08/31/19 [History Confirmed 01/07/22] losartan 25 mg tablet 25 mg PO DAILY 08/31/19 [History Confirmed 01/07/22] nitroglycerin 0.4 mg sublingual tablet 0.4 mg sublingual PRN PRN angina 09/20/19 [History Confirmed 01/07/22] yjgcbthg-woe-pttph acid 0.4 mg-lycopene 300 mcg-lutein 250 mcg tablet 1 ea PO DAILY 03/28/20 [History Confirmed 01/07/22] hydrocodone-acetaminophen 5-325mg 5mg-325mg 1 tab PO Q8H PRN Pain 12/19/20 [History Confirmed 01/07/22] triamcinolone acetonide 55 mcg nasal spray aerosol (Nasacort) 1 spray intranasal DAILY 12/19/20 [History Confirmed 01/07/22] L.acidophil,salivari-Bifido bifidum-Strep thermoph 175 mg capsule (Acidophilus Probiotic Blend) 1 cap PO DAILY 5 days #5 caps 02/07/21 [Rx Confirmed 01/07/22] cilostazol 100 mg tablet 100 mg PO 09/18/21 [History Confirmed 07/25/22] PFSH Medical History? A-fib Adjustment disorder with anxiety Alcohol use Arthritis Back pain Back problem Cardiology follow-up encounter DDD (degenerative disc disease), lumbar Easy bruising Elevated white blood cell count Excessive bleeding Former smoker Gastrointestinal problem High cholesterol History of atrial fibrillation History of echocardiogram History of heart attack History of leukemia History of stress test Kidney stones Leg cramps Mass of left forearm Neoplasm of skin of upper arm Subcutaneous mass of head Syncope and collapse Torus fracture of lower end of unspecified fibula, initial encounter for closed fracture Vascular disease Verrucous keratosis Vision problems Wears contact lenses Surgical History? History of appendectomy History of cholecystectomy History of heart artery stent Hx of cystoscopy Family History? Father Heart diseaseMother Cancer of liver Pancreatic cancerSister Heart disease Social History? Smoking Status:? Former smoker alcohol intake:? current substance use type:? does not use additional social history:? Does Take Aspirin Does Not Take Ibuprofen HPI HPI HPI: GIACOMO MADRIGAL, is a 71 M who presents to the office today for inguinal hernia.? This finding was first noticed by patient, but he thought this was related to gland swelling and his diagnosis of CLL.? Patient is not able to recall how this occurred, but estimates it has been present for 2 months or just a little longer.? He notes some progressive growth since first noticing this issue.? He states that is now about the size of an egg.? He does complain of one-time getting out of his vehicle and experiencing some uncomfortable stabbing at this site, but otherwise states this has been tolerable.? He notes that the hernia seems to be reducible overnight, but then protrudes during the day as he gets up and about.? He confirms this is not had any impact on his bowel movements which occur 1-2 times daily.? He also denies any bouts of unexplained nausea or vomiting. Patient has a personal history of smoking, but states that he stopped 11 years ago around the time of a heart attack.? Patient has no personal history of recurrent cutaneous infections including staph.? He is currently prescribed cilostazol for his history of both coronary artery disease as well as peripheral arterial disease.? He states that he has stopped this medication in the past for colonoscopies and joint injections.? He also shares that he recently underwent a battery of tests including a stress test, carotid duplex, and echocardiogram.? He reports some progression of his carotid stenosis (but not to the point of requiring intervention) and was told otherwise these results were favorable.? He follows with Dr. Wagner of cardiology in [place] and Dr. Leija of vascular surgery also in [place]. Pertinent surgical history includes: Open appendectomy at the age of 18 and laparoscopic cholecystectomy. ROS General General: No weight change, appetite, fatigue, colon cancer, breast cancer or weakness HEENT HEENT: No difficulty swallowing, eye injury, eye surgery, swollen glands or hoarseness Endo Endocrine: No thyroid disease, diabetes mellitus, thyroid cancer, Hair loss, heat intolerance or cold intolerance Skin Skin: No rash or changing moles Breast Breast: No left breast lump, right breast lump, nipple discharge, breast pain, abnormal mammogram, abnormal US or breast enlargement Musc Musculoskeletal: Yes back problems; No arthritis, rheumatoid arthritis, gout or joint pain Cardio Cardiovascular: Yes heart disease, high blood pressure, heart attack and heart stent; No murmur, pacemaker, atrial fibrillation, palpitations, shortness of breat with exertion or chest pain Psych Psychiatric: No depression, anxiety or hearing voices Resp Respiratory: No shortness of breath, No sleep apnea, No cough, No COPD, No asthma, No emphysema and No wheezing Gastro Gastrointestinal: No abdominal pain, No nausea or vomiting, No diarrhea, No constipation, No blood in stool, No acid reflux, Yes hemorrhoids, No ulcers, No gallbladder problem and No black,tarry stools Cesar Hematologic: Yes blood thinners, No blood disorders, No bleeding, No anemia and No blood clots Neuro Neurologic: No system reviewed and no additional complaints, except as documented, No as per HPI, No abnormal gait, No abnormal hearing, No abnormal movements, No abnormal speech, No behavioral changes, No burning sensations, No confusion, No convulsions, No disequilibrium, No dizziness, No localized weakness, No frequent falls, No headache(s), No lack of coordination, No loss of vision, No memory loss, No numbness, No other visual disturbances, No radicular pain, No restless legs, No sensory deficit, No syncope, No tingling, No tremor(s), No weakness and No other Exam Const General: cooperative and no acute distress Orientation: alert, awake and oriented x3 Resp Effort & Inspection: normal respiratory effort GI Inspection: normal to inspection and scar (Consistent with open appendectomy laparoscopic cholecystectomy both well-he) External: hernia (I believe I palpated a indirect hernia defect when patient is bearing down ) and inguinal lymphadenopathy bilaterally Assessment and Plan Assessment and Plan (1) Inguinal hernia: ?Status:?Chronic ?Qualifiers: ?Obstruction and gangrene presence:?without obstruction or gangrene?? Laterality:?unilateral??Recurrence:?not specified as recurrent? Qualified Code(s):?K40.90 - Unilateral inguinal hernia, without obstruction or gangrene, not specified as recurrent ?Comment: Patient with right inguinal hernia that has been reducible.? He wishes to have it repaired as he has begun to have some pain with that and notices it getting larger.? His exam is somewhat complicated by concurrent inguinal adenopathy from his diagnosis of CLL. He also notes a bulge on the contralateral side.? I do not feel anything on exam in this location, but given his altered anatomy and these reports we will obtain a CT of the abdomen and pelvis to assess further.? If we are able to confirm these hernias, we will plan for robot-assisted inguinal hernia repair with mesh.? Patient notified he will require a hold of his cilostazol x1 week preop.? I will plan to follow-up with patient via telephone once his imaging results are finalized. ?Plan: ? CT of the abdomen pelvis.? We will follow-up with patient via telephone once this has resulted I have re-examined the patient. There are no clinical changes since date of exam. I reviewed expectations for the procedure as well as postprocedure wound care and lifting restrictions. I also shared with him that the CT suggest there is a contralateral inguinal hernia that will be addressed during today's procedure. Patient expresses understanding of this information and agrees to lifting request. Proceed with probable bilateral robot-assisted inguinal hernia repair as discussed above.
[2022-02-14] MEDS: Cefazolin 2 GM in 0.9% Normal Saline 100 ML IV (11:15)
--- NOTE | 2022-02-14 13:25 | OP.PCM_ITS ---
Report of Operation Date of Procedure: 02/14/22 Pre-Operative Diagnosis: Symptomatic right inguinal hernia, possible left ingui nal hernia Post-Operative Diagnosis: 1. Indirect right inguinal hernia 2. No hernia defect on the left Surgery/Procedure Performed:: Robot-assisted right inguinal hernia repair with mesh Description of Surgical Findings:: ? Moderate sized right indirect inguinal hernia defect ? No evidence of hernia defect on the left beneath sigmoid colon Surgeon: Marcelo Escamilla custom shop worker: Irma Frausto Type of Anesthesia: General/Supplemental Anesthesiologist: Gilbert Garcia Specimen's removed: NA Estimated Blood Loss (mL): 20 Description of Procedure: After appropriate identification the preoperative holding area the patient was brought to the operating room where he was positioned supine on the operating table. Preoperative antibiotics were completed and the patient was administered a general anesthetic. Patient's abdomen was then prepped and draped in usual sterile fashion. Formal timeout followed to confirm patient and procedure. Procedure was begun with an optical entry facilitated by Veress insufflation at Marlow's point. Once pneumoperitoneum reached a set point pressure of 15 mmHg a left paramedian incision was made and a 8 mm robotic trocar was placed with a careful Optiview technique. Follow-up laparoscopic investigation revealed no inadvertent injury to the viscera below. A second port was placed a hand's breath right of this index port under laparoscopic visualization. Then the Veress needle was withdrawn and a third and final robotic port was placed through this site. Patient was positioned in slight Trendelenburg and the robot was docked in standard fashion. Robotically a peritoneal flap was created on the right and was bluntly dissected to expose the medial parietal compartment and lateral visceral compartments. Medially I could visualize the pubic tubercle and Pasquale's ligament while laterally I extended the dissection down to the level of the ASIS. During this dissection it was clear the patient had a obvious indirect inguinal hernia defect. The hernia sac was identified and from the cord structures deeply with selective use of monopolar energy. Carefully the hernia sac was grasped and the adherent soft tissues were swept away taking care to protect the cord structures inferiorly. The peritoneal flap was inspected to ensure that there was no pulling of the cord structures or the viscera deeply over the psoas using the pull test. Then attention was turned to the patient's left side where there was no visible holes dimpling of the peritoneum to suggest a inguinal floor defect. Therefore I proceeded with mesh placement on the right. A Bard 3D max, size large, medium weight mesh was placed into the abdomen along with suture. It was positioned within the preperitoneal pocket so that there was good medial and inferior overlap. It was then tacked to the abdominal wall at the pubic tubercle and laterally in a partial-thickness bite of the abdominal wall using a 3-0 Vicryl suture. The peritoneal flap was then closed with a running 3-0 V-Loc suture taking care to conceal the barbs of the suture beneath the peritoneum. This sealed the previous peritoneal compartment well as there were no rents in the peritoneum. With the peritoneal defects closed, sutures were systematically removed from the peritoneum. A ilioinguinal nerve block was performed under laparoscopic visualization prior to evacuating pneumoperitoneum and removing the trocars. This was completed was 0.25% bupivacaine plain. The then the port sites were closed at the skin with running 4-0 Monocryl in a subcuticular fashion. Steri-Strips and OpSite's were used as dressings. Patient's testicles were returned to the scrotum and a supportive jockstrap was fitted. Patient was then awoken from anesthetic and transferred to PACU for ongoing recovery. Grafts/Implants Used: 11 x 16 cm Bard medium weight mesh Complications None Admit VTE Documentation VTE Mechan Device Prophylaxis: SCD's Procedures Digestive 40xxx-49xxx: 10074 Lap ing hernia repair init
--- NOTE | 2022-02-14 13:31 | EX.PCM.DISCH ---
Discharge Instructions Diet Discharge Diet: No restrictions Activity Discharge Activity: May Not Drive (While taking narcotic pain medication) and May Shower Lifting Restrictions: No lifting greater than 15 pounds for the next 4 weeks Dressing / Incision Call your doctor if your incision/area has: Continuous Slow Oozing, Increased Pain/ Swelling, Increased Redness, Foul Smelling Discharge and Swelling at the incision site Call your doctor if you observe: Fever of 101 or Higher Change Dressing in: 2 days (Please leave Steri-Strips intact until they fall off spontaneously or are taken off at your follow-up visit) Cleanse incision/area with: Soap & Water and Keep Dressing Clean & Dry Follow Up Care Please Follow Up With: Marcelo Escamilla MD When: 1 week postop Test Results: Test results from this visit will be discussed in further detail at your follow-up appointment, if applicable. Discharge Plan Admission Primary Reason for Your Visit: Inguinal hernia repair Attending Provider: Marcelo Escamilla Primary Care Provider: Edgard Quintana Instructions Patient Instructions: Laparoscopic Hernia Repair Discharge Orders/Prescriptions Prescriptions: New oxycodone 5 mg capsule 5 mg PO Q6H PRN (Reason: pain) 5 Days Qty: 10 0RF No Action cilostazol 100 mg tablet 100 mg PO BID aspirin 81 MG tablet,chewable 81 mg PO DAILY@0800 Hold Instructions: Resume on 02/12/21. atorvastatin 40 MG tablet 40 mg PO QHS losartan 25 MG tablet 25 mg PO DAILY nitroglycerin 0.4 MG tablet, sublingual 0.4 mg sublingual PRN PRN (Reason: angina) [id number]-IP-lycopen-lutein 1 EACH tablet 1 ea PO DAILY triamcinolone acetonide [Nasacort Allergy] 55 mcg Aerosol,[place] 1 spray INTRANASAL DAILY Rx Instructions: administer into each nostril vitamin B complex Capsule 1 cap PO DAILY Referrals / Follow Up: Edgard Quintana MD [Primary Care Provider] - Disposition Disposition (needs filled in before D/C Order can be placed): Home, Self Care
[2022-02-14 13:45] VITALS: BP 112/71; BP 156/58; PULSE 68; RESP 16; TEMP 36.8; O2SAT 100
[2022-02-14 14:00] VITALS: BP 112/71; BP 125/70; PULSE 71; RESP 16; O2SAT 99
[2022-02-14 14:15] VITALS: BP 112/71; BP 139/80; PULSE 77; RESP 16; O2SAT 94
[2022-02-14 14:20] VITALS: BP 112/71; BP 134/78; PULSE 79; RESP 16; TEMP 36.4; O2SAT 98
[2022-02-14 15:25] VITALS: BP 112/71; BP 128/88; PULSE 60; RESP 16; TEMP 36.5; O2SAT 95
== END 2022-02-14 15:40 | disposition home or self-care (01) ==
LOC: SDC 09:29 → AC 10:38
PROVIDERS: Internal Medicine Medical Oncology; PCP Family Medicine; Referring Provider Surgery; Visit Provider Surgery
PROC: (CPT 49650; principal; 2022-02-14 10:40)
DX: K40.90 Unilateral inguinal hernia, without obstruction or gangrene, not specified as recurrent (principal); C91.10 Chronic lymphocytic leukemia of B-cell type not having achieved remission; I25.10 Atherosclerotic heart disease of native coronary artery without angina pectoris; Z87.891 Personal history of nicotine dependence; Z80.0 Family history of malignant neoplasm of digestive organs; Z79.82 Long term (current) use of aspirin
CPT/HCPCS: 49650; 00840; 36415; 80053; 83615; 85025; J7120; C1781; J2405

== ENCOUNTER 2022-02-16 10:17 | Emergency (ER) | payer MEDICARE, OTHER, SELFPAY ==
[2022-02-16 10:18] VITALS: BP 119/67; PULSE 62; RESP 17; TEMP 36.7; O2SAT 99; BMI 18.8
--- NOTE | 2022-02-16 10:28 | CT_ITS ---
EXAM: CT ANGIOGRAPHY CHEST WITHOUT AND WITH INTRAVENOUS CONTRAST CLINICAL INDICATION: pulmonary embolism TECHNIQUE: Helically acquired angiography images were obtained of the chest without and with intravenous contrast. This CT exam was performed using one or more of the following dose reduction techniques: automated exposure control, adjustment of the mA and/or kV according to patient size, and/or use of iterative reconstruction technique. This report was created using [employer] report generation technology. MIP reconstructed images were created and reviewed. CONTRAST: IV 100mL Isovue-300 COMPARISON: None. FINDINGS: PULMONARY ARTERIES: Unremarkable. Normal in caliber. No evidence of pulmonary embolism. AORTA: Unremarkable. Normal in caliber. No evidence of dissection. GREAT VESSELS OF AORTIC ARCH: Unremarkable. Normal in caliber. No evidence of dissection. LUNGS AND PLEURAL SPACES: Unremarkable. No mass. No consolidation or edema. No pleural effusion or thickening. No pneumothorax. HEART: Unremarkable. Heart size is normal. No pericardial effusion. No signs of right heart strain, ratio of right ventricle to left ventricle measures less than 1. MEDIASTINUM: Unremarkable. No mediastinal or hilar adenopathy. Esophagus is unremarkable. No hiatal hernia. THYROID: Unremarkable. No thyroid lesions. BONES/JOINTS: Unremarkable. No suspicious lytic or blastic abnormality. SOFT TISSUES: There is free air in the upper abdomen. There is also gas in the subcutaneous tissues of the lower chest and abdomen likely due to recent abdominal surgery. CT/CTA Chest W/WO Contrast IMPRESSION: 1. No evidence of pulmonary embolus. 2. Free air in the upper abdomen as well as in the subcutaneous tissues of the abdomen and chest likely due to recent abdominal surgery. Electronically Signed: Salty Miller MD at 13:13 EDT ,
--- NOTE | 2022-02-16 10:28 | EKG12_ITS ---
Test Reason : Blood Pressure : / mmHG Vent. Rate : 057 BPM Atrial Rate : 057 BPM P-R Int : 136 ms QRS Dur : 082 ms QT Int : 402 ms P-R-T Axes : 075 059 064 degrees QTc Int : 391 ms Sinus bradycardia Otherwise normal ECG Confirmed by JANIS CHAMPION, IVELISSE ([id number]), content editor MANN NICHOLSON ([id number]) on 02/19/2022 9:04:13 AM Referred By: Confirmed By:STEPHON BRUCE MD
--- NOTE | 2022-02-16 10:28 | CT_ITS ---
EXAM: CT ABDOMEN AND PELVIS WITH INTRAVENOUS CONTRAST CLINICAL INDICATION: postoperative pain -- IV PO Contrast TECHNIQUE: Helically acquired images were obtained of the abdomen and pelvis with intravenous contrast. This CT exam was performed using one or more of the following dose reduction techniques: automated exposure control, adjustment of the mA and/or kV according to patient size, and/or use of iterative reconstruction technique. This report was created using [employer] report generation technology. CONTRAST: IV 100mL Isovue-300 COMPARISON: 01/14/2022 FINDINGS: LOWER THORAX: Unremarkable. Lung bases are clear. No cardiomegaly. No significant pericardial effusion. ABDOMEN: LIVER: Unremarkable. Homogeneous. No focal mass. GALLBLADDER AND BILE DUCTS: There are surgical clips from a cholecystectomy. Gas in the subcutaneous tissues over the abdomen likely due to surgery. No fluid is identified. No intra- or extrahepatic biliary ductal dilation. PANCREAS: Unremarkable. No focal cystic or solid mass. SPLEEN: Unremarkable. Normal size without focal cystic or solid mass. ADRENALS: Unremarkable. No nodules. KIDNEYS AND URETERS: Unremarkable. Normal renal size and position. No hydronephrosis. STOMACH AND BOWEL: Unremarkable. No stomach or bowel distention. No focal inflammatory change. PELVIS: APPENDIX: No evidence of acute appendicitis. BLADDER: Unremarkable. REPRODUCTIVE: Unremarkable as visualized. No mass. ABDOMEN and PELVIS: INTRAPERITONEAL SPACE: There is free air is seen in the upper abdomen. No ascites or other fluid collection. BONES/JOINTS: Unremarkable. No suspicious lytic or blastic abnormality. SOFT TISSUES: There is gas in the subcutaneous tissues over the lower chest and abdomen which is likely due to recent surgery. VASCULATURE: Unremarkable. Abdominal aorta is non-dilated. LYMPH NODES: There is again scattered retroperitoneal adenopathy which is stable. CT/Abdomen/Pelvis WITH Contrast IMPRESSION: Free air in the upper abdomen. There is also gas seen within subcutaneous tissues over the lower chest and abdomen and this is all likely due to recent abdominal surgery. No fluid collections are identified. No other abnormalities are seen. Electronically Signed: Salty Miller MD at 13:09 EDT ,
--- NOTE | 2022-02-16 10:31 | EDS_ITS ---
HPI History of Present Illness Chief Complaint: Abd Pain Informant: patient Narrative Narrative: 71-year-old male postoperative day 2 from a laparoscopic robotic assisted inguinal hernia repair by Dr. Escamilla. He states that he was doing well until last evening when he had an increasing amount of pain. He notes its right upper quadrant that radiates inferiorly and up to his shoulder with particular movements. He notes discomfort with deep breathing. He he notes that he has not been having any emesis. He denies flatus or return of bowel movements. No difficulty urinating. No reported fever. He called on-call surgery and was advised to come to the hospital. [facility] Medical History A-fib Adjustment disorder with anxiety Alcohol use Arthritis Back pain Back problem Blackout Cardiology follow-up encounter DDD (degenerative disc disease), lumbar Easy bruising Elevated white blood cell count Excessive bleeding Former smoker Gastrointestinal problem High cholesterol History of atrial fibrillation History of echocardiogram History of heart attack History of leukemia History of renal disease History of stress test Kidney stones Leg cramps Mass of left forearm Neoplasm of skin of upper arm Subcutaneous mass of head Syncope and collapse Torus fracture of lower end of unspecified fibula, initial encounter for closed fracture Vascular disease Verrucous keratosis Vision problems Wears contact lenses Home Medications aspirin 81 mg chewable tablet 81 mg PO DAILY@0800 06/01/14 [History Last Taken Unknown] atorvastatin 40 mg tablet 40 mg PO QHS 08/31/19 [History Last Taken Unknown] losartan 25 mg tablet 25 mg PO DAILY 08/31/19 [History Last Taken 02/13/22] nitroglycerin 0.4 mg sublingual tablet 0.4 mg sublingual PRN PRN angina 09/20/19 [History Last Taken Unknown] aejflpzf-epj-ocotk acid 0.4 mg-lycopene 300 mcg-lutein 250 mcg tablet 1 ea PO DAILY 03/28/20 [History Last Taken Unknown] cilostazol 100 mg tablet 100 mg PO BID 09/18/21 [History Last Taken 02/07/22] triamcinolone acetonide 55 mcg nasal spray aerosol (Nasacort Allergy) 1 spray intranasal DAILY 02/01/22 [History Last Taken Unknown] vitamin B complex 1 cap PO DAILY 02/01/22 [History Last Taken Unknown] oxycodone 5 mg capsule 5 mg PO Q6H PRN pain 5 days #10 caps 02/14/22 [Rx Last Taken Unknown] docusate sodium 100 mg capsule (Colace) 100 mg PO BID #10 caps 02/16/22 [Rx Last Taken Unknown] magnesium citrate 300 ml PO DAILY PRN constipation #600 mL 02/16/22 [Rx Last Taken Unknown] oxycodone 5 mg tablet 5 mg PO Q6H PRN pain 5 days #20 tabs 02/16/22 [Rx Last Taken Unknown] Allergy/AdvReac Type Severity Reaction Status Date / Time No Known Allergies Allergy Verified 02/16/22 11:46 Family History Father Heart disease Mother Cancer of liver Pancreatic cancer Sister Heart disease Surgical History History of appendectomy History of cholecystectomy History of heart artery stent Hx of cystoscopy Social History Smoking Status: Former smoker alcohol intake: current substance use type: does not use additional social history: Does Take Aspirin Does Not Take Ibuprofen ROS ROS ED Constitutional Constitutional ED: Denies chills or weight loss Eyes Eyes: Denies change in vision or diplopia ENT ENT ED: Denies ear pain, rhinorrhea or sore throat Cardiovascular Cardiovascular: Reports chest pain; Denies orthopnea, palpitations or racing heartbeat Respiratory/Chest Respiratory/Chest: Denies cough, dyspnea or orthopnea Gastrointestinal Gastrointestinal: Reports abdominal pain and constipation; Denies diarrhea, nausea or vomiting Genitourinary Genitourinary ED: Denies dysuria, hematuria or urinary frequency Musculoskeletal Musculoskeletal: Denies arthralgias or myalgias Integumentary Denies abscess or rash Neurologic Neurologic: Denies headache(s) or weakness Psychiatric Psychiatric: Denies anxiety, depression, suicidal ideation or suicidal thoughts Endocrine Endocrinology: Denies polydipsia, polyphagia or polyuria Allergic/Immunologic Allergic/Immunologic ED: Denies mouth swelling, tongue swelling or urticaria EXAM Physical Exam Const Vital Signs: 02/16/22 10:18 02/16/22 10:34 02/16/22 11:43 Temperature 98.0 F 98.0 F 98.1 F Temperature Source Temporal Temporal Temporal Pulse Rate 62 62 59 L Respiratory Rate 17 17 15 Blood Pressure 119/67 119/67 141/73 H Blood Pressure Mean 84 84 95 Pulse Ox 99 99 99 Oxygen Delivery Method Room Air Room Air Room Air 02/16/22 12:46 Temperature Temperature Source Pulse Rate 68 Respiratory Rate 18 Blood Pressure 124/67 H Blood Pressure Mean 86 Pulse Ox 98 Oxygen Delivery Method Room Air Positive well nourished and well developed General Appearance ED: well developed HEENT Reports normocephalic, head/scalp atraumatic and moist mucous membranes Eyes PERRL and EOMs intact bilaterally Neck no lymphadenopathy, supple and no JVD Resp normal respiratory effort and clear to auscultation bilaterally Cardio regular rate, regular rhythm and no murmurs GI GI Narrative: Surgical wounds appear to be healing well. Inspection: Negative for abdominal distention Auscultation: normoactive bowel sounds Palpation: soft, tender and guarding Back/Spine no CVA tenderness and normal ROM Extremity normal to inspection General Extremety ED: Negative for edema General Extremity: Negative for edema Neuro oriented x3 and CN's II-XII intact bilaterally Sensorium / Orientation: alert Motor Exam: strength 5/5 throughout Psych mental status grossly normal Mood & Affect: Negative for depressed or tearful Skin no rashes or lesions noted and no wounds MDM MDM MDM Narrative Medical decision making narrative: White count is 9.4. CMP showed a total bilirubin of 1.9. Urinalysis normal. Troponin is normal. CTA of the chest and CT of the abdomen pelvis was obtained. This demonstrates free air in the abdomen as well as in the subcutaneous tissue. There is increased amount of stool on the right abdomen. There are no abnormal fluid collections. At this point I think that the pain is related to the free air and should resolve. We also are going to use some magnesium citrate and some Dulcolax to see if we can help him have a bowel movement. I can also write for some additional pain medication. Case was discussed with on- call surgeon Dr. Jeff who concurs with plan Lab Data Attestation: I reviewed the patient's lab results. Labs: Laboratory Results - last 24 hr 02/16/22 02/16/22 02/16/22 10:30 10:30 Unknown WBC 9.4 RBC 4.16 L Hgb 13.5 Hct 41.7 MCV 100.2 H MCH 32.5 H MCHC 32.4 RDW Std Deviation 52.1 H RDW Coeff of Shane 14.2 Plt Count 185 MPV 9.4 Immature Gran % (Auto) 1.900 H Neut % (Auto) 19.7 L Lymph % (Auto) 77.5 H [place] % (Auto) 0.7 Eos % (Auto) 0.1 Baso % (Auto) 0.1 Absolute Neuts (auto) 1.8 L Absolute Lymphs (auto) 7.25 H Nucleated RBC % 0 Differential Comment SCANNED Sodium 138 Potassium 4.5 Chloride 104 Carbon Dioxide 28.0 Anion Gap 6 BUN 17 Creatinine 0.87 Estim Creat Clear Calc 67.45 Est GFR (MDRD) Af Amer 111 Est GFR (MDRD) Non-Af 92 BUN/Creatinine Ratio 19.6 Glucose 128 H Calcium 8.9 Total Bilirubin 1.90 H AST 20 ALT 29 Alkaline Phosphatase 57 Troponin I High Sens 4 Total Protein 6.0 L Albumin 3.6 Globulin 2.4 Albumin/Globulin Ratio 1.5 Urine Color Yellow Urine Clarity Clear Urine pH 6.0 Ur Specific [place] 1.020 Urine Protein 15 H Urine Glucose (UA) Normal Urine Ketones Negative Urine Occult Blood 10 H Urine Nitrite Negative Urine Bilirubin Negative Urine Urobilinogen Normal Ur Leukocyte Esterase Negative Urine RBC 0 SEEN Urine WBC 0 SEEN Ur Squamous Epith Cells 0 SEEN Urine Bacteria 0 SEEN Urine Mucus 0 SEEN Radiography Diagnostic Testing: Clinical Impression(s) from Imaging Studies Abdomen/Pelvis CT 02/16/22 10:28 IMPRESSION: Free air in the upper abdomen. There is also gas seen within subcutaneous tissues over the lower chest and abdomen and this is all likely due to recent abdominal surgery. No fluid collections are identified. No other abnormalities are seen. Electronically Signed: Salty Miller MD at 13:09 EDT , Chest CTA 02/16/22 10:28 IMPRESSION: 1. No evidence of pulmonary embolus. 2. Free air in the upper abdomen as well as in the subcutaneous tissues of the abdomen and chest likely due to recent abdominal surgery. Electronically Signed: Salty Miller MD at 13:13 EDT , EKG Initial EKG: Attestation: I personally reviewed and interpreted this EKG as follows: Comments: Sinus bradycardia with a ventricular rate of 57 bpm. Discharge Plan Triage Chief Complaint: Abd Pain ED Provider: Irving Farias Dx/Rx/DC Orders Clinical Impression: S/P inguinal hernia repair, Chest pain, Abdominal pain, Constipation Instructions: ED Post Op Wound Check, Pain Prescriptions: New oxycodone 5 mg tablet 5 mg PO Q6H PRN (Reason: pain) 5 Days Qty: 20 0RF docusate sodium [Colace] 100 mg capsule 100 mg PO BID Qty: 10 0RF magnesium citrate Solution 300 ml PO DAILY PRN (Reason: constipation) Qty: 600 0RF No Action cilostazol 100 mg tablet 100 mg PO BID aspirin 81 MG tablet,chewable 81 mg PO DAILY@0800 Hold Instructions: Resume on 02/12/21. atorvastatin 40 MG tablet 40 mg PO QHS losartan 25 MG tablet 25 mg PO DAILY nitroglycerin 0.4 MG tablet, sublingual 0.4 mg sublingual PRN PRN (Reason: angina) [id number]-htd-TR-lycopen-lutein 1 EACH tablet 1 ea PO DAILY triamcinolone acetonide [Nasacort Allergy] 55 mcg Aerosol,[place] 1 spray INTRANASAL DAILY Rx Instructions: administer into each nostril vitamin B complex Capsule 1 cap PO DAILY oxycodone 5 mg capsule 5 mg PO Q6H PRN (Reason: pain) 5 Days Qty: 10 0RF Primary Care Provider: Edgard Quintana Referrals: Edgard Quintana MD [Primary Care Provider] - Marcelo Escamilla MD [Med Staff - Active Staff] - Keep Juan appointment Disposition Disposition: Home, Self Care
[2022-02-16 10:34] VITALS: BP 119/67; PULSE 62; RESP 17; TEMP 36.7; O2SAT 99
[2022-02-16] MEDS: 0.9% Normal Saline 1,000 ML 1000 ML IV (10:40)
[2022-02-16] MEDS: Morphine 4 MG/ML Syringe IV (10:40)
[2022-02-16] MEDS: Ondansetron 4 MG/2 ML Vial IV (10:40)
[2022-02-16 10:43] LABS: Absolute Lymphocyte Count 7.25 X10^3/uL (0.83-4.51); Absolute Neutrophil Count 1.8 X10^3/uL (2.0-7.7); Basophil# 0.01 X10^3/uL; Basophil% 0.1 % (0-1); Eosinophil# 0.01 X10^3/uL; Eosinophils% 0.1 % (0-5); Hematocrit 41.7 % (40-54); Hemoglobin 13.5 g/dL (13.0-16.5); Lymphocyte # 7.25 X10^3/ul (0.83-4.51); Lymphocyte % 77.5 % (19-41); Mean Corp Hgb Conc 32.4 g/dL (32-36); Mean Corpuscular Hgb 32.5 pg (27.0-32.0); Mean Corpuscular Volume 100.2 fL (80-94); Mean Platelet Vol. 9.4 fl (6.2-12.0); Monocyte# 0.07 X10^3/uL; Monocyte% 0.7 % (0-10); NRBC Flagged by Analyzer 0 % (0-5); Neutrophil # 1.84 X10^3/uL (2.7-7.7); Neutrophil % 19.7 % (47-70); POSITIVE DIFFERENTIAL YES; Platelet Count 185 K/mm3 (150-450); RBC Distribution Width CV 14.2 % (11.6-14.6); RBC Distribution Width SD 52.1 fl (35.1-43.9); Red Blood Count 4.16 M/mm3 (4.6-6.2); White Blood Count 9.4 K/mm3 (4.4-11.0)
[2022-02-16 10:47] LABS: Differential Indicated SCAN CRITERIA MET
[2022-02-16 11:03] LABS: Differential Comment SCANNED
[2022-02-16 11:05] LABS: ALB/GLOB Ratio 1.5 RATIO (0.9-2.4); AST(SGOT) 20 U/L (15-37); Alanine Aminotransfer ALT/SGPT 29 U/L (16-61); Albumin, Serum 3.6 g/dL (3.2-5.0); Alkaline Phosphatase 57 U/L (45-117); Anion Gap 6 (5-15); BUN 17 mg/dL (7-18); BUN/Creat Ratio 19.6 RATIO (10-20); Calcium,Total 8.9 mg/dL (8.5-10.1); Chloride 104 mmol/L (98-107); Creatinine, Serum 0.87 mg/dL (0.70-1.30); EST Glomerular Filtration Rate 92 mL/min (>60); Est Glom Filt Rate - Afr Amer 111 mL/min (>60); Estimated Creatinine Clearance 67.45 ml/min; Globulin 2.4 g/dL (2.2-4.2); Glucose 128 mg/dL (74-106); Potassium 4.5 mmol/L (3.5-5.1); Sodium Level 138 mmol/L (136-145); Troponin-I HS 4 pg/mL (3.0-78.0)
[2022-02-16 11:29] LABS: Bacteria 0 SEEN /hpf (None Seen); Mucous, Urine 0 SEEN /hpf (<or=2+); Red Blood Cells-Urine 0 SEEN /hpf (0-5); Squamous Epithelial Cells - UA 0 SEEN /hpf (0-5); White Blood Cells 0 SEEN /hpf (0-5)
[2022-02-16 11:31] LABS: Color, Urine Yellow (Yellow); Glucose, Dipstick Normal (Normal); Ketone-Dipstick Negative (Negative); Leukocyte Esterase-Dipstick Negative /ul (Negative); Nitrite-Dipstick Negative (Negative); Occult Blood-Urine 10 /ul (Negative); Protein-Dipstick 15 mg/dl (Negative); Urine Bilirubin Dipstick Negative (Negative); Urine Clarity Clear (Clear); Urine Urobilinogen Normal (Normal)
[2022-02-16 11:43] VITALS: BP 141/73; PULSE 59; RESP 15; TEMP 36.7; O2SAT 99
[2022-02-16 12:46] VITALS: BP 124/67; PULSE 68; RESP 18; O2SAT 98
[2022-02-16 13:56] VITALS: BP 118/69; PULSE 57; RESP 16; O2SAT 98
== END 2022-02-16 13:57 | disposition home or self-care (01) ==
PROVIDERS: Emergency Provider Emergency Medicine; PCP Family Medicine; Visit Provider Emergency Medicine
DX: Z98.890 Other specified postprocedural states (principal); R10.9 Unspecified abdominal pain; K59.00 Constipation, unspecified; R07.9 Chest pain, unspecified; E78.00 Pure hypercholesterolemia, unspecified; M19.90 Unspecified osteoarthritis, unspecified site; Z79.82 Long term (current) use of aspirin; Z79.899 Other long term (current) drug therapy; Z87.891 Personal history of nicotine dependence
CPT/HCPCS: 71275; 74177; 80053; 81001; 84484; 85025; 93005; 96361; 96374; 96375; 99283; J7030; Q9967; A4216; J2405

== ENCOUNTER → 2022-12-13 | Outpatient (CLI) | payer MEDICARE, OTHER, SELFPAY ==
--- NOTE | 2022-12-13 11:11 | RAD_ITS ---
STUDY: X-RAY CHEST REASON FOR EXAM: Male, 72 years old. fever TECHNIQUE: Frontal and lateral views of the chest. COMPARISON: 08/31/2019. FINDINGS: There is hyperinflation of the lungs consistent with chronic obstructive lung disease (COPD). No infiltrates or effusions. There is no demonstrated pleural abnormality. Normal size heart. Normal mediastinum and jorge luis. Normal visualized pulmonary arteries. Normal visualized aortic arch and descending thoracic aorta. There are diffuse degenerative changes of the visualized thoracic spine. Normal visualized ribs, clavicles, and shoulders. There is no demonstrated abnormality of the visualized soft tissue structures of the upper abdomen. RAD/Chest PA and Lateral IMPRESSION: There are findings consistent with COPD. There is no evidence of acute chest disease. Electronically Signed: Cuate Haskins MD at 22:57 EDT ,
[2022-12-13 12:33] LABS: Hematocrit 46.3 % (40-54); Mean Corp Hgb Conc 32.4 g/dL (32-36); Mean Corpuscular Hgb 31.8 pg (27.0-32.0); Mean Corpuscular Volume 98.3 fL (80-94); Mean Platelet Vol. 10.5 fl (6.2-12.0); POSITIVE COUNT YES; POSITIVE MORPHOLOGY YES; Platelet Count 205 K/mm3 (150-450); RBC Distribution Width CV 13.2 % (11.6-14.6); RBC Distribution Width SD 48.4 fl (35.1-43.9); Red Blood Count 4.71 M/mm3 (4.6-6.2); White Blood Count 5.6 K/mm3 (4.4-11.0)
[2022-12-13 12:41] LABS: Differential Indicated MANUAL DIFF
[2022-12-13 12:59] LABS: Erythrocyte Sedimentation Rate 12 mm/hr (0-20)
[2022-12-13 13:07] LABS: ALB/GLOB Ratio 1.3 RATIO (0.9-2.4); AST(SGOT) 22 U/L (15-37); Alanine Aminotransfer ALT/SGPT 31 U/L (16-61); Albumin, Serum 3.7 g/dL (3.2-5.0); Alkaline Phosphatase 74 U/L (45-117); Anion Gap 7 (5-15); BUN 13 mg/dL (7-18); BUN/Creat Ratio 13.7 RATIO (10-20); Calcium,Total 9.1 mg/dL (8.5-10.1); Chloride 104 mmol/L (98-107); Creatinine, Serum 0.95 mg/dL (0.70-1.30); EST Glomerular Filtration Rate 83 mL/min (>60); Est Glom Filt Rate - Afr Amer 101 mL/min (>60); Globulin 2.9 g/dL (2.2-4.2); Glucose 103 mg/dL (74-106); Potassium 3.8 mmol/L (3.5-5.1); Protein, Total 6.6 g/dL (6.4-8.2); Sodium Level 137 mmol/L (136-145)
[2022-12-13 13:26] LABS: Lymphocyte 46 % (19-41); Metamyelocyte 1 % (0-1); Neutrophil-Band 10 % (0-5); Neutrophil-Segmented 43 % (47-70); Platelet Estimate ADEQUATE (ADEQ); Red Cell Morphology NORM C+C NORMAL (NORM C&C); Total Cells Counted 100 (MANUAL DIFF)
[2022-12-13 13:28] LABS: Absolute Lymphocyte Count 2.57 X10^3/uL (0.83-4.51)
[2022-12-14 08:10] LABS: Lyme Scn Total Ab w/Rflx Negative (Negative)
[2022-12-16 10:02] LABS: Pathologist Review Reviewed
[2022-12-16 16:09] LABS: ANTINUCLEAR ANTIBODIES DIRECT Negative (Negative)
== END | disposition home or self-care (01) ==
LOC: MTLAB 11:06
PROVIDERS: PCP Family Medicine; Referring Provider Family Medicine; Visit Provider Family Medicine
DX: R50.9 Fever, unspecified (principal)
CPT/HCPCS: 36415; 71046; 80053; 85025; 85652; 86038; 86140; 86618

== ENCOUNTER → 2023-01-06 | Outpatient (CLI) | payer MEDICARE, OTHER, SELFPAY ==
--- NOTE | 2023-01-06 14:57 | ART_ITS ---
Reason For Study: LEG PAIN Procedure A bilateral lower extremity continuous wave Doppler with analog waveform analysis and ankle brachial indexes. Left Segmental Pressures Left brachial= 106mmHg. Left posterior tibial artery = 129mmHg. Left dorsalis pedis artery = 122mmHg. The left posterior tibial artery waveforms are triphasic. The left dorsalis pedis waveforms are triphasic. Right Segmental Pressures Right brachial= 108mmHg. Right posterior tibial artery = 103mmHg. Right dorsalis pedis artery = 93mmHg. The right posterior tibial artery waveforms are triphasic. The right dorsalis pedis waveforms are triphasic. Indices The right resting ankle brachial index is 0.95. The right ankle brachial index by the posterior tibial artery is 0.95. The right ankle brachial index by the dorsalis pedis is 0.86. The left resting ankle brachial index is 1.19. The left ankle brachial index by the posterior tibial artery is 1.19. The left ankle brachial index by the dorsalis pedis is 1.13. VL/Ankle Brachial Index Interpretation Summary Normal at rest with triphasic flow and MARY GRACE 0.95 and 1.19. Ordering Physician: Ar Leija Referring Physician: Milind Quintana Performed By: Leonela Farr RVT, RDCS
== END | disposition home or self-care (01) ==
LOC: CVS 14:56
PROVIDERS: PCP Family Medicine; Referring Provider Surgery Vascular Surgery; Visit Provider Surgery Vascular Surgery
DX: I70.213 Atherosclerosis of native arteries of extremities with intermittent claudication, bilateral legs (principal); M79.606 Pain in leg, unspecified
CPT/HCPCS: 93922

== ENCOUNTER → 2023-07-23 | Outpatient (CLI) | payer MEDICARE, OTHER, SELFPAY ==
--- NOTE | 2023-07-23 15:14 | VDUE_ITS ---
Reason For Study: Left arm pain Right Proximal Left Proximal Right subclavian vein is spontaneous, widely Left jugular vein is spontaneous, widely patent, phasic, with no intraluminal patent, phasic, with no intraluminal echogenicity noted. echogenicity noted. Left subclavian vein is spontaneous, widely patent, phasic, with no intraluminal echogenicity noted. Left Arm Left axillary vein is spontaneous, patent, phasic, competent, compressible and demonstrates augmentation. Left brachial vein is compressible. Left cephalic vein is compressible. Left basilic vein is compressible. Left Lower Arm Left radial vein is compressible. Left ulnar vein is compressible. Multiple enlarged lymph nodes noted bilaterally. Patient Safety Preliminary report faxed to Dr. Smallwood. VL/Venous Duplex US, Unilateral Interpretation Summary Deep veins of the left upper extremity are patent and compressible segmentally. There is no evidence of deep vein thrombosis. The superficial veins of the left upper extremity, the basilic and cephalic veins, are patent and compressible. There is no evidence of left upper extremit y superficial thrombophlebitis involving the veins imaged. The right subclavian vein is paten t. Multiple enlarged lymph nodes are noted bilaterally. Ordering Physician: Golden Smallwood Referring Physician: Milind Quintana MD Performed By: Cyndy Reed RDCS, RVT ???
--- OUTSIDE RECORDS SUMMARY | 2023-07-23 18:57 | XMS RPT_ITS | CCD ---
Author Name Unknown Address [address] [place] [address] Organization [facility] Care Team Providers Care Mulcher Operator Name Role Phone Milind Griffiths MD Primary Care Provider MILIND GRIFFITHS Primary Care UnavailMEGAN Lazaro Referring Unavailable MILIND GRIFFITHS Primary Care UnavailMILIND Diaz Primary Care UnavailMEGAN Lazaro Attending Unavailable MILIND GRIFFITHS Primary Care Unavailabl e MENA AMJAD Referring Unavailable MILIND GRIFFITHS Primary Care Unavailabl e Medications Completed/Discontinued Medications Medication Drug Class(es) Dates Sig (Normalized) Sig (Original) acetaminophen 325 mg / HYDROcodone bitartrate 5 mg oral tablet (1 source) Opioid Agonist Start: 12-19-2020 HYDROcodone-acetam inophen (NORCO) 5-325 mg per tablet Take by mouth. 0 12/19/2020 Active Problems Active Problems Problem Classification Problem Date Documented Da te Episodic/Chronic Disorders of lipid metabolism (1 source) Mixed hyperlipidemia; Translations: [Mixed hyperlipidemia] Onset: 03-05-2023 Chronic Past or Other Problems Problem Classification Problem Date Documented Da te Episodic/Chronic Calculus of urinary tract (3 sources) Kidney stone; Translations: [Calculus of kidney] Onset: 09-05-2022 Episodic Other screening for suspected conditions (not mental disorders or infectious disease) (4 sources) Patient encounter status; Translations: [Encounter for screening for malignant neoplasm of prostate] Onset: 08-30-2022 Episodic Results Test Name Value Interpretation Reference Range Facil ity Vital Signs Date Time Vital Sign Value Performing Clinician Faci lity 09-05-2022 09:45-0400 Body height 180.3 cm Malcolm Rolle TOBACCO DRYING MACHINE OPERATOR.RUBBER BELT SPLICER Work Phone: [facility] 09-05-2022 09:45-0400 Body weight 65.77 kg Malcolm Rolle TOBACCO DRYING MACHINE OPERATOR.RUBBER BELT SPLICER Work Phone: [facility] Encounters Encounter Date Encounter Type Care Provider Facility Start: 03-05-2023 End: 03-06-2023 ambulatory MILIND GRIFFITHS Facility:[id number] Start: 09-05-2022 End: 09-06-2022 ambulatory JANENE MENA Facility:[id number] Start: 09-05-2022 End: 09-05-2022 ambulatory MEGAN ROLLE Facility:[id number] Start: 09-05-2022 End: 09-05-2022 Patient encounter procedure Megan Rolle TOBACCO DRYING MACHINE OPERATOR.RUBBER BELT SPLICER Work Phone: Urology Procedures Date Procedure Procedure Detail Performing Clinician Start: 09-05-2022 Urnls dip stick/tabl et rgnt auto w/o microscopy Megan Rolle TOBACCO DRYING MACHINE OPERATOR.RUBBER BELT SPLICER Work Phone: Start: 01-22-2022 Radiologic exam abdo men 1 view Chaparro Flores MD Work Phone: Plan of Treatment Date Care Activity Detail Author Start: 09-06-2023 End: 11-06-2023 PSA/PROSTSPECAG SCRN PSA/PROSTSPECAG SCRN Lab Routine Screening PSA (prostate specific antigen) Expected: 09/06/2023 (Approximate), Expires: 11/06/2023 [facility] Work Phone: Payers Date Payer Category Payer Medicare [id number] 2016 Private Health Insurance [employer] A ETNA MEDICARE SUPPLEMENT [id number] 2016-Present [phone] [address] [address] [place] [address] Indemnity [id number] 2015 Medicare MEDICARE MEDICAR E A AND B [id number] 2015-Present [phone] [address] [address] [place] [address] Medicare [id number] 2015 Medicare [id number] 2010 Unknown [employer] BLUE CARD PPO OOS [id number] 2010-Present [phone] [address] [place] [address] PPO [id number] Social History Date Type Detail Facility Tobacco smoking stat [facility] Tobacco smoking consumption unknown [facility] Start: 1950 Sex Assigned At Not on file [facility] Start: 01-12-2022 End: 01-22-2022 Exposure to SARS-CoV-2 (event) Not sure [facility] Start: 09-05-2022 Tobacco smoking stat [facility] Never smoked tobacco [facility] Start: 09-05-2022 Tobacco use and exposure Smokeless t obacco non-user [facility] Start: 09-05-2022 Alcohol intake Current drinke r of alcohol (finding) [facility] Start: 1950 Sex Assigned At Male C [facility] Progress note 09-05-2022 Note Date & Type Note Facility 09-05-2022 Note HNO ID: [id number] Author: Megan Rolle APRN.RUBBER BELT SPLICER Service: ? Author Type: Nurse Practitioner Type: Progress Notes Filed: 09/05/2022 9:59 AM Note Text: [facility] ESTABLISHED PATIENT OFFICE VISIT Patient presents with: Kidney Stones: 7 mo f/u for K/S, KUB in chart, PSA 1.06 on 08/30/22. HISTORY OF PRESENT ILLNESS Saad Madrigal is a 72 year old male who is here for follow up of [place]. KUB shows stable small R renal stones. No recent colicky pain. No bothersome LUTS or hematuria. PSA WNL at 1.06 Review of Systems Constitutional: Negative for appetite change. HENT: Negative for sneezing. Respiratory: Negative for cough. Cardiovascular: Negative for chest pain. Gastrointestinal: Negative for nausea and vomiting. Skin: Negative for rash. Neurological: Negative for facial asymmetry. The remainder of the ROS was reviewed and is negative. LAB No results found for: CREAT PSA Screening (ng/mL) Date Value 08/30/2022 1.06 Psa Screen (NG/ML) Date Value 07/26/2021 1.02 07/01/2019 1.46 07/01/2018 1.33 GLUCOSE UA (POCT) (mg/dL) Date Value 09/05/2022 Negative BILIRUBIN UA (POCT) (no units) Date Value 09/05/2022 Negative KETONE UA (POCT) (mg/dL) Date Value 09/05/2022 Negative SPECIFIC GRAVITY UA (POCT) (no units) Date Value 09/05/2022 <=1.005 (A) HEMOGLOBIN/BLOOD UA (POCT) (no units) Date Value 09/05/2022 Negative PH UA (POCT) (no units) Date Value 09/05/2022 6.0 PROTEIN UA (POCT) (mg/dL) Date Value 09/05/2022 Negative UROBILINOGEN UA (POCT) (E.U./dL) Date Value 09/05/2022 0.2 NITRITE UA (POCT) (no units) Date Value 09/05/2022 Negative LEUKOCYTES UA (POCT) (no units) Date Value 09/05/2022 Negative COLOR UA (POCT) (no units) Date Value 09/05/2022 Yellow CLARITY UA (POCT) (no units) Date Value 09/05/2022 Clear ] MEDICATIONS aspirin 81 mg chewable tablet Take 81 mg by mouth. atorvastatin (LIPITOR) 40 mg tablet Take 40 mg by mouth. clopidogrel (PLAVIX) 75 mg tablet Take 75 mg by mouth. HYDROcodone-acetaminophen (NORCO) 5-325 mg per tablet Take by mouth. losartan (COZAAR) 25 mg tablet Take 25 mg by mouth. nitroglycerin sublingual (NITROQUICK) 0.4 mg SL tablet 0.4 mg. triamcinolone acetonide (NASACORT AQ) 55 mcg nasal inhaler Use in the nose. VITAMIN B COMPLEX ORAL Take by mouth. peg 3350-Electrolytes (GOLYTELY) 236-22.74-6.74 gram ORAL suspension Take by mouth. Refer to printed patient instructions that will be mailed to you 0 HISTORIES PAST MEDICAL HISTORY Diagnosis Date Kidney stones History reviewed. No pertinent surgical history. History reviewed. No pertinent family history. SOCIAL HISTORY Social History Tobacco Use Smoking status: Never Smokeless tobacco: Never Substance Use Topics Alcohol use: Yes Drug use: Never Ht 180.3 cm (5' 11 ) Wt 65.8 kg (145 lb) BMI 20.22 kg/m? Physical Exam Vitals reviewed. Constitutional: General: He is not in acute distress. Cardiovascular: Rate and Rhythm: Normal rate and regular rhythm. Pulmonary: Breath sounds: Normal breath sounds. Genitourinary: Rectum: Normal. Neurological: Mental Status: He is alert and oriented to person, place, and time. ASSESSMENT/PLAN: 1. Kidney stones - ICD9: 592.0, ICD10: N20.0 (primary diagnosis) KUB and f/u 1 yr 2. Screening PSA (prostate specific antigen) - ICD9: V76.44, ICD10: Z12.5 PSA and f/u 1 yr - PSA/PROSTSPECAG SCRN Mgean Rolle APRN.RUBBER BELT SPLICER This note was partially created using voice recognition software and is inherently subject to errors including those of syntax and sound-alike substitutions which may escape proofreading. In such instances, original meaning may be extrapolated by contextual derivation. [facility] History of Present illness Narrative 09-05-2022 Megan Rolle APRN.DIANNA - 09/05/2022 9:18 AM EDT Note Date & Type Note Facility 09-05-2022 History of Presen t illness Narrative Images from the original note were not included. [facility] ESTABLISHED PATIENT OFFICE VISIT Patient presents with: Kidney Stones: 7 mo f/u for K/S, KUB in chart, PSA 1.06 on 08/30/22. HISTORY OF PRESENT ILLNESS Saad Madrigal is a 72 year old male who is here for follow up of [place]. KUB shows stable small R renal stones. No recent colicky pain. No bothersome LUTS or hematuria. PSA WNL at 1.06 Review of Systems Constitutional: Negative for appetite change. HENT: Negative for sneezing. Respiratory: Negative for cough. Cardiovascular: Negative for chest pain. Gastrointestinal: Negative for nausea and vomiting. Skin: Negative for rash. Neurological: Negative for facial asymmetry. The remainder of the ROS was reviewed and is negative. LAB No results found for: CREAT PSA Screening (ng/mL) Date Value 08/30/2022 1.06 Psa Screen (NG/ML) Date Value 07/26/2021 1.02 07/01/2019 1.46 07/01/2018 1.33 GLUCOSE UA (POCT) (mg/dL) Date Value 09/05/2022 Negative BILIRUBIN UA (POCT) (no units) Date Value 09/05/2022 Negative KETONE UA (POCT) (mg/dL) Date Value 09/05/2022 Negative SPECIFIC GRAVITY UA (POCT) (no units) Date Value 09/05/2022 <=1.005 (A) HEMOGLOBIN/BLOOD UA (POCT) (no units) Date Value 09/05/2022 Negative PH UA (POCT) (no units) Date Value 09/05/2022 6.0 PROTEIN UA (POCT) (mg/dL) Date Value 09/05/2022 Negative UROBILINOGEN UA (POCT) (E.U./dL) Date Value 09/05/2022 0.2 NITRITE UA (POCT) (no units) Date Value 09/05/2022 Negative LEUKOCYTES UA (POCT) (no units) Date Value 09/05/2022 Negative COLOR UA (POCT) (no units) Date Value 09/05/2022 Yellow CLARITY UA (POCT) (no units) Date Value 09/05/2022 Clear ] MEDICATIONS aspirin 81 mg chewable tablet Take 81 mg by mouth. atorvastatin (LIPITOR) 40 mg tablet Take 40 mg by mouth. clopidogrel (PLAVIX) 75 mg tablet Take 75 mg by mouth. HYDROcodone-acetaminophen (NORCO) 5-325 mg per tablet Take by mouth. losartan (COZAAR) 25 mg tablet Take 25 mg by mouth. nitroglycerin sublingual (NITROQUICK) 0.4 mg SL tablet 0.4 mg. triamcinolone acetonide (NASACORT AQ) 55 mcg nasal inhaler Use in the nose. VITAMIN B COMPLEX ORAL Take by mouth. peg 3350-Electrolytes (GOLYTELY) 236-22.74-6.74 gram ORAL suspension Take by mouth. Refer to printed patient instructions that will be mailed to you 0 HISTORIES PAST MEDICAL HISTORY Diagnosis Date Kidney stones History reviewed. No pertinent surgical history. History reviewed. No pertinent family history. SOCIAL HISTORY Social History Tobacco Use Smoking status: Never Smokeless tobacco: Never Substance Use Topics Alcohol use: Yes Drug use: Never Ht 180.3 cm (5' 11 ) Wt 65.8 kg (145 lb) BMI 20.22 kg/m Physical Exam Vitals reviewed. Constitutional: General: He is not in acute distress. Cardiovascular: Rate and Rhythm: Normal rate and regular rhythm. Pulmonary: Breath sounds: Normal breath sounds. Genitourinary: Rectum: Normal. Neurological: Mental Status: He is alert and oriented to person, place, and time. ASSESSMENT/PLAN: 1. Kidney stones - ICD9: 592.0, ICD10: N20.0 (primary diagnosis) KUB and f/u 1 yr 2. Screening PSA (prostate specific antigen) - ICD9: V76.44, ICD10: Z12.5 PSA and f/u 1 yr - PSA/PROSTSPECAG SCRN Megan Rolle APRN.CNP This note was partially created using voice recognition software and is inherently subject to errors including those of syntax and sound-alike substitutions which may escape proofreading. In such instances, original meaning may be extrapolated by contextual derivation. documented in this encounter [facility] Progress note 08-30-2022 Note Date & Type Note Facility 08-30-2022 Note HNO ID: [id number] Author: RT Fatimah(Teressa) Service: ? Author Type: Technologist Type: Progress Notes Filed: 08/30/2022 2:56 PM Note Text: Radiology Service Progress Note PATIENT NAME: Saad Madrigal DATE OF SERVICE: August 30, 2022 TIME: 2:56 PM PATIENT IDENTITY VERIFICATION COMPLETED USING TWO (2) IDENTIFIERS: Name and Date of confirmed by patient verbally. FALL SCREENING: Has the patient had 2 falls in the last year or 1 fall with injury or currently using an Ambulatory Assistive Device (Walker, Cane, Wheelchair, Crutches, etc.)? No PATIENT GENDER DATA: Male PATIENT RELEVANT IMPLANT DATA REVIEWED: Not Applicable RADIOLOGY DEPARTMENT: General X-ray: Exam(s) Completed: Abdomen X-Ray: Abdomen PERIPHERAL IV DATA: Not applicable SIGNED BY: RT Fatimah(R) August 30, 2022 2:56 PM [facility] History of Present illness Narrative 01-22-2022 RT Adama(R) - 01/22/2022 2:00 PM EDT Note Date & Type Note Facility 01-22-2022 History of Presen t illness Narrative Radiology Service Progress Note PATIENT NAME: Saad Madrigal DATE OF SERVICE: January 22, 2022 TIME: 2:14 PM PATIENT IDENTITY VERIFICATION COMPLETED USING TWO (2) IDENTIFIERS: Name and Date of confirmed by patient verbally. FALL SCREENING: Has the patient had 2 falls in the last year or 1 fall with injury or currently using an Ambulatory Assistive Device (Walker, Cane, Wheelchair, Crutches, etc.)? No PATIENT GENDER DATA: Male PATIENT RELEVANT IMPLANT DATA REVIEWED: Not Applicable RADIOLOGY DEPARTMENT: General X-ray: Exam(s) Completed: Abdomen X-Ray: Abdomen PERIPHERAL IV DATA: Not applicable SIGNED BY: RT Adama(R) January 22, 2022 2:14 PM documented in this encounter [facility] Evaluation note Note Date & Type Note Facility documented in this encounter [facility] Reason for referral (narrative) Diagnostic Procedure Only (Routine) - Pending Review Note Date & Type Note Facility Referral ID Status Reason Start Date Expiration Date Visits Requested Visits Authorized [id number] Pending Review Auto-Generat ed Referral 09/06/2023 10/05/2023 1 1 [facility] Summary Purpose Family History No Family History Records FoundNo Family History Records Found Advance Directives No Advanced Directives Records FoundNo Advanced Directives Records Found Additional Source Comments Source Comments (unrecognize d section and content) In the event this informatio n is protected by the Federal Confidentiality of Alcohol and Drug Abuse Patient Records regulations: The Federal rules restrict any use of the information to criminally investigate or prosecute any alcohol or drug abuse patient.[facility] the event this information is protected by the Federal Confidentiality of Alcohol and Drug Abuse Patient Records regulations: The Federal rules restrict any use of the information to criminally investigate or prosecute any alcohol or drug abuse patient.[facility] the event this information is protected by the Federal Confidentiality of Alcohol and Drug Abuse Patient Records regulations: The Federal rules restrict any use of the information to criminally investigate or prosecute any alcohol or drug abuse patient.[facility] Care Teams (unrecognized sec tion and content) Mulcher Operator Relationship Specialty Start Date End Date Milind Griffiths MD [address] [place], [place] [id number] PCP - General Family Practice 09/14/10 Mulcher Operator Relationship Specialty Start Date End Date Milind Griffiths MD [address] [facility] [address] PCP - General Family Medicine 09/14/10 (unrecognized sect ion and content) No Status Records FoundNo Status Records Found INFORMATION SOURCE (unrecogn ized section and content) DATE CREATED AUTHOR AUTHOR'S ORGANIZ ATION 03/07/2023 [facility] nter Reason for Visit (unrecogniz ed section and content) FOR RECORDS PERTAINING TO PATIENTS WHO ARE OR HAVE BEEN ENROLLED IN A CHEMICAL DEPENDENCY/SUBSTANCEABUSE PROGRAM, SOME INFORMATION MAY BE OMITTED. This clinical summary was aggregated from multiple sources. Caution should be exercised in using it in the provision of clinical care. This summary normalizes information from multiple sources, and as a consequence, information in this document may materially change the coding, format and clinical context of patient data. In addition, data may be omitted in some cases. CLINICAL DECISIONS SHOULD BE BASED ON THE PRIMARY CLINICAL RECORDS. [facility]. provides no warranty or guarantee of the accuracy or completeness of information in this document.
== END | disposition home or self-care (01) ==
LOC: CVS 15:09
PROVIDERS: PCP Family Medicine; Referring Provider Family Medicine; Visit Provider Family Medicine
DX: R60.0 Localized edema (principal); I73.9 Peripheral vascular disease, unspecified; M79.89 Other specified soft tissue disorders
CPT/HCPCS: 93971

== ENCOUNTER → 2023-08-07 | Outpatient (CLI) | payer MEDICARE, OTHER, SELFPAY ==
--- NOTE | 2023-08-07 18:45 | CT_ITS ---
STUDY: CT LEFT SHOULDER AND ARM REASON FOR EXAM: Male, 73 years old. SWELLING LEFT ARM RADIATION DOSAGE (If Supplied By Facility): CTDIvol = ( 25.36 ) mGy, DLP = ( 5026.16 ) mGycm TECHNIQUE: The patient was scanned in a multi detector CT scanner. High resolution transaxial imaging was performed following the administration of 100 mL Isovue-370 intravenous contrast material. Sagittal and coronal images were reconstructed. Individualized dose optimization techniques were used for this CT. COMPARISON: None. FINDINGS: Normal glenohumeral articulation. Normal glenoid rim, neck and visualized scapula. Normal humeral head, neck and tuberosities. Normal coracoid process. Normal visualized lateral clavicle. Normal acromioclavicular articulation. There is a Type II morphology (curved), with a neutral orientation. There is mild left axillary lymphadenopathy. Normal humerus, radius, and ulna. There is no demonstrated acute fracture. Normal radiocapitellar and ulnotrochlear joints. Normal visualized muscles and soft tissue structures. There is no discrete fluid collection or drainable abscess. CT/Extremity Upper WITH Contrast IMPRESSION: Mild left axillary lymphadenopathy. Otherwise unremarkable CT of the left shoulder and arm. Electronically Signed: Gabriel Wolfe MD at 10:41 EST ,
--- OUTSIDE RECORDS SUMMARY | 2023-08-07 19:38 | XMS RPT_ITS | CCD ---
Author Name Unknown Address [address] [place] [address] Organization [facility] Care Team Providers Care Bereavement Program Coordinator Name Role Phone Milind Griffiths MD Primary [...] 09:45-0400 Body height 180.3 cm Malcolm Rolle INSURANCE CLAIMS EXAMINER.ADJUNCT INSTRUCTOR IN ECONOMICS Work Phone: [facility] 09-05-2022 09:45-0400 Body weight 65.77 kg Malcolm Rolle INSURANCE CLAIMS EXAMINER.ADJUNCT INSTRUCTOR IN ECONOMICS Work Phone: [facility] Encounters Encounter Date Encounter Type Care Provider Facility Start: 03-05-2023 End: 03-06-2023 ambulatory MILIND GRIFFITHS Facility:[id number] Start: 09-05-2022 End: 09-06-2022 ambulatory JANENE MENA Facility:[id number] Start: 09-05-2022 End: 09-05-2022 ambulatory MEGAN ROLLE Facility:[id number] Start: 09-05-2022 End: 09-05-2022 Patient encounter procedure Megan Rolle INSURANCE CLAIMS EXAMINER.ADJUNCT INSTRUCTOR IN ECONOMICS Work Phone: Urology Procedures Date Procedure Procedure Detail Performing Clinician Start: 09-05-2022 Urnls dip stick/tabl et rgnt auto w/o microscopy Megan Rolle INSURANCE CLAIMS EXAMINER.ADJUNCT INSTRUCTOR IN ECONOMICS Work Phone: Start: 01-22-2022 Radiologic exam abdo men 1 view Chaparro Flores MD Work Phone: Plan of Treatment Date Care Activity Detail Author Start: 09-06-2023 End: 11-06-2023 PSA/PROSTSPECAG SCRN PSA/PROSTSPECAG SCRN Lab Routine Screening PSA (prostate specific antigen) Expected: 09/06/2023 (Approximate), Expires: 11/06/2023 [facility] Work Phone: Payers Date Payer Category Payer Medicare [id number] 2016 Private Health Insurance [employer] A ETNA MEDICARE SUPPLEMENT [id number] 2016-Present [phone] [address] [address] [place] [address] Indemnity [id number] 2015 Medicare MEDICARE MEDICAR E A AND B [id number] 2015-Present [phone] [address] [address] [place] [address] Medicare [id number] 2015 Medicare [id number] 2010 Unknown [employer]UE CARD PPO OOS [id number] 2010-Present [phone] [address] [place] [address] PPO [id number] Social History Date Type Detail Facility Tobacco smoking stat [facility] Tobacco smoking consumption unknown [facility] Start: 1950 Sex Assigned At Not on file [facility] Start: 01-12-2022 End: 01-22-2022 Exposure to SARS-CoV-2 (event) Not sure [facility] Start: 09-05-2022 Tobacco smoking stat [facility] Never smoked tobacco [facility] Start: 09-05-2022 Tobacco use and exposure Smokeless t obacco non-user [facility] Start: 09-05-2022 Alcohol intake Current drinke r of alcohol (finding) [facility] Start: 1950 Sex Assigned At Male C [facility] Progress note 09-05-2022 Note Date & Type Note Facility 09-05-2022 Note HNO ID: [id number] Author: Megan Rolle APRN.ADJUNCT INSTRUCTOR IN ECONOMICS Service: ? Author Type: Nurse Practitioner Type: Progress Notes Filed: 09/05/2022 9:59 AM Note Text: [facility] ESTABLISHED PATIENT OFFICE VISIT Patient presents with: [...] 1 yr - PSA/PROSTSPECAG SCRN Megan Rolle APRN.ADJUNCT INSTRUCTOR IN ECONOMICS This note was partially created using voice recognition software and is inherently subject to errors including those of syntax and sound-alike substitutions which may escape proofreading. In such instances, original meaning may be extrapolated by contextual derivation. [facility] History of Present illness Narrative 09-05-2022 Megan Rolle APRN.DIANNA - 09/05/2022 9:18 AM EDT Note Date & Type Note Facility 09-05-2022 History of Presen t illness Narrative Images from the original note were not included. [facility] ESTABLISHED PATIENT OFFICE VISIT Patient presents with: [...] by contextual derivation. documented in this encounter [facility] Progress note 08-30-2022 Note Date & Type Note Facility 08-30-2022 Note HNO ID: [id number] Author: RT Fatimah(Teressa) Service: ? Author Type: [...] RT Fatimah(R) August 30, 2022 2:56 PM [facility] History of Present illness Narrative 01-22-2022 [...] 2022 2:14 PM documented in this encounter [facility] Evaluation note Note Date & Type Note Facility documented in this encounter [facility] Reason for referral (narrative) Diagnostic Procedure Only (Routine) - Pending Review Note Date & Type Note Facility Referral ID Status Reason Start Date Expiration Date Visits Requested Visits Authorized [id number] Pending Review Auto-Generat ed Referral 09/06/2023 10/05/2023 1 1 [facility] Summary Purpose Family History No Family History [...] or prosecute any alcohol or drug abuse patient.[facility] the event this information is protected by the Federal Confidentiality of Alcohol and Drug Abuse Patient Records regulations: The Federal rules restrict any use of the information to criminally investigate or prosecute any alcohol or drug abuse patient.[facility] the event this information is protected by the Federal Confidentiality of Alcohol and Drug Abuse Patient Records regulations: The Federal rules restrict any use of the information to criminally investigate or prosecute any alcohol or drug abuse patient.[facility] Care Teams (unrecognized sec tion and content) Bereavement Program Coordinator Relationship Specialty Start Date End Date Milind Griffiths MD [address] [place], [place] [id number] PCP - General Family Practice 09/14/10 Bereavement Program Coordinator Relationship Specialty Start Date End Date Milind Griffiths MD [address] [facility] [place] [address] PCP - General Family Medicine 09/14/10 (unrecognized sect ion and content) No Status Records FoundNo Status Records Found INFORMATION SOURCE (unrecogn ized section and content) DATE CREATED AUTHOR AUTHOR'S ORGANIZ ATION 03/07/2023 [facility] nter Reason for Visit (unrecogniz ed section [...] BE BASED ON THE PRIMARY CLINICAL RECORDS. [facility] [employer] [facility]. provides no warranty or guarantee of the accuracy or completeness of information in this document.
== END | disposition home or self-care (01) ==
LOC: CT 18:45
PROVIDERS: PCP Family Medicine; Visit Provider Internal Medicine Medical Oncology
DX: M79.89 Other specified soft tissue disorders (principal)
CPT/HCPCS: 73201; Q9967

== ENCOUNTER → 2023-12-15 | Outpatient (CLI) | payer MEDICARE, OTHER, SELFPAY ==
--- NOTE | 2023-12-15 07:40 | ART_ITS ---
Reason For Study: Atherosclerosis Procedure A bilateral lower extremity continuous wave Doppler with analog waveform analysis and ankle brachial indexes. Left Segmental Pressures Left brachial= 114mmHg. Left posterior tibial artery = 138mmHg. Left dorsalis pedis artery = 136mmHg. Left digit = 108 mmHg. Right Segmental Pressures Right brachial= 113mmHg. Right posterior tibial artery = 105mmHg. Right dorsalis pedis artery = 91mmHg. Right digit = 92 mmHg. Indices The right ankle brachial index by the posterior tibial artery is 0.92. The right ankle brachial index by the dorsalis pedis is 0.80. The right digital-brachial index is 0.81. The left ankle brachial index by the posterior tibial artery is 1.21. The left ankle brachial index by the dorsalis pedis is 1.19. The left digital-brachial index is 0.95. VL/Ankle Brachial Index Interpretation Summary Bilateral normal at rest with MARY GRACE 0.92 and 1.21 and digits 0.81 and 0.95. Ordering Physician: Ar Leija Referring Physician: Milind Quintana Performed By: Cyndy Reed RVT, RDCS and Student
== END | disposition home or self-care (01) ==
LOC: CVS 07:40
PROVIDERS: PCP Family Medicine; Referring Provider Surgery Vascular Surgery; Visit Provider Surgery Vascular Surgery
DX: I70.213 Atherosclerosis of native arteries of extremities with intermittent claudication, bilateral legs (principal); M79.606 Pain in leg, unspecified
CPT/HCPCS: 93922

== ENCOUNTER → 2024-08-04 | Outpatient (CLI) | payer MEDICARE, OTHER, SELFPAY ==
--- NOTE | 2024-08-04 13:13 | CT_ITS ---
PROCEDURE: LOW DOSE CT LUNG SCREENING REASON FOR EXAM: Former smoker. Patient has smoked 1 pack per day for 39 years. History of coronary artery stents. TECHNIQUE: Low Dose CT Lung Screening without contrast COMPARISON: Comparison is made with prior study dated February 16, 2022. FINDINGS: PULMONARY NODULES: (Only nodules >6mm are reported) Nodules described below are on series unless otherwise specified. Pulmonary Nodules: No concerning pulmonary nodules. Hardware:None Lymph Nodes:No mediastinal hilar or axillary lymphadenopathy. Heart and Vasculature:Normal heart size. No pericardial effusion.Thoracic aorta and pulmonary arteries have normal contours; noncontrast technique limits evaluation. Coronary Artery Calcifications: Present Lungs and Airways: Hyperinflation. Mild degree of emphysematous changes. Pleura:No pleural effusion. No pneumothorax. Upper Abdomen:Visualized portions of the upper abdominal viscera are unremarkable. Bones:Degenerative changes of the thoracic spine. CT/Low Dose CT Lung Screening IMPRESSION: 1. BASED ON THE ACR LUNG RADS FOR THE MOST SUSPICIOUS NODULE (IF ANY) DESCRIBE D IN THIS REPORT, THE OVERALL LUNG RADS SCORE IS 1. 1 - NEGATIVE. RECOMMEND 12-MONTH SCREENING LDCT.. 2. SMOKING CESSATION COUNSELING IS RECOMMENDED IF THE PATIENT IS STILL SMOKING . 3. OTHER SIGNIFICANT FINDINGSNone. One or more dose reduction techniques were used (e.g., Automated exposure contr ol, adjustment of the mA and/or kV according to patient size, use of iterative reconstruction technique). The following information is provided for reference:Lung-RADS 2021 Assessment C ategories. Additional information involving Lung-RADS is available at www.acr.org. 0-INCOMPLETE 1-NEGATIVE:No nodules or definitely benign nodules. Complete, central, popcorn , or centric ring calcifications OR fat containing 2-BENIGN APPEARANCE (based on imaging features or indolent behavior). Juxtaple ural nodule: < 10mm AND solid; smooth margins; oval, entiform, or triangular shape Solid nodule: <6mm at baseline or new< 4mm Part solid Nodule: < 6mm total mean diameter at baseline Nonsolid nodule:(GGN) < 30mm OR >=30mm stable or slowly growing Airway nodule, subsegmental at baseline, new, or stable Category 3 nodule stabl e or decreased in size at 6-month follow-up CT or Category 3 or 4A nodules that resolve on follow-up OR category 4B findings prov en to be benign following diagnotic work up. 3 - Probably Benign (Based on imaging features or behavior) Solid Nodule: >= 6 to <8mm at baseline OR new 4 to <6mm Part-solid nodule: >= 6mm toal mean diam. with solid component <6mm at baseline OR new < 6mm total mean diam. Non-solid nodule: GGN >= 30mm at baseline or new Atypical pulmonary cyst: Growing cystic component (mean diam.) of thick-walled cyst Category 4A nodule stable or decreased in size at 3-month follow-up CT (excl.ai rway). 4A - Suspicious Solid nodule: >=8 to < 15mm at baseline OR growing < 8mm OR new 6 to < 8mm Part solid nodule: >= 6mm total mean diam. w/ solid component >=6mm to < 8mm at baseline OR new or growing < 4mm solid component Airway nodule, segmental or more proximal at baseline or new Atypical pulmonary cyst: Thick-walled OR multilocular at baseline OR becomes mu ltilocular 4B - Very Suspicious Airway nodule, segmental or more proximal, and stable or growing Solid nodule: >= 15mm at baseline OR new or growing >= 8mm Part solid nodule: Solid component >= 8mm OR new or growing >= 4mm solid compon ent Atypical pulmonary cyst: Thick-walled with growing wall thickness/nodularity OR Growing multilocular (mean diam.) OR Multilocular with increased loculation or new/increased opacity Slow-growing solid or part solid nodule w/ growth over multiple screening exams 4X - Very Suspicious Category 3 or 4 nodules with additional features that increase the suspicion fo r lung cancer. S - Clinically Significant or potentially significant findings (non-lung cancer ) 3. OTHER SIGNIFICANT FINDINGSNone. One or more dose reduction techniques were used (e.g., Automated exposure contr ol, adjustment of the mA and/or kV according to patient size, use of iterative reconstruction technique). The following information is provided for reference:Lung-RADS 2021 Assessment C ategories. Additional information involving Lung-RADS is available at www.acr.org. 0-INCOMPLETE 1-NEGATIVE:No nodules or definitely benign nodules. Complete, central, popcorn , or centric ring calcifications OR fat containing 2-BENIGN APPEARANCE (based on imaging features or indolent behavior). Juxtaple ural nodule: < 10mm AND solid; smooth margins; oval, entiform, or triangular shape Solid nodule: <6mm at baseline or new< 4mm Part solid Nodule: < 6mm total mean diameter at baseline Nonsolid nodule:(GGN) < 30mm OR >=30mm stable or slowly growing Airway nodule, subsegmental at baseline, new, or stable Category 3 nodule stabl e or decreased in size at 6-month follow-up CT or Category 3 or 4A nodules that resolve on follow-up OR category 4B findings prov en to be benign following diagnotic work up. 3 - Probably Benign (Based on imaging features or behavior) Solid Nodule: >= 6 to <8mm at baseline OR new 4 to <6mm Part-solid nodule: >= 6mm toal mean diam. with solid component <6mm at baseline OR new < 6mm total mean diam. Non-solid nodule: GGN >= 30mm at baseline or new Atypical pulmonary cyst: Growing cystic component (mean diam.) of thick-walled cyst Category 4A nodule stable or decreased in size at 3-month follow-up CT (excl.ai rway). 4A - Suspicious Solid nodule: >=8 to < 15mm at baseline OR growing < 8mm OR new 6 to < 8mm Part solid nodule: >= 6mm total mean diam. w/ solid component >=6mm to < 8mm at baseline OR new or growing < 4mm solid component Airway nodule, segmental or more proximal at baseline or new Atypical pulmonary cyst: Thick-walled OR multilocular at baseline OR becomes mu ltilocular 4B - Very Suspicious Airway nodule, segmental or more proximal, and stable or growing Solid nodule: >= 15mm at baseline OR new or growing >= 8mm Part solid nodule: Solid component >= 8mm OR new or growing >= 4mm solid compon ent Atypical pulmonary cyst: Thick-walled with growing wall thickness/nodularity OR Growing multilocular (mean diam.) OR Multilocular with increased loculation or new/increased opacity Slow-growing solid or part solid nodule w/ growth over multiple screening exams 4X - Very Suspicious Category 3 or 4 nodules with additional features that increase the suspicion fo r lung cancer. S - Clinically Significant or potentially significant findings (non-lung cancer ) Reading Location: [id number]
== END | disposition home or self-care (01) ==
LOC: CT 13:12
PROVIDERS: PCP Family Medicine; Referring Provider Family Medicine; Visit Provider Family Medicine
DX: Z87.891 Personal history of nicotine dependence (principal)
CPT/HCPCS: 71271

== ENCOUNTER → 2025-01-05 | Outpatient (CLI) | payer MEDICARE, OTHER, SELFPAY ==
--- NOTE | 2025-01-05 11:23 | RAD_ITS ---
PROCEDURE: L/S SPINE W BEND MIN 6 VW 01/05/2025 REASON FOR EXAM: PAIN, R LEG PAIN ALOS TECHNIQUE: L/S SPINE W BEND MIN 6 VW COMPARISON: None. FINDINGS: Curvature: Unremarkable. Other findings: No acute bony abnormalities. No spondylolysis. Multilevel degenerate changes predominantly at L4-L5 and L5-S1 where there is disc space narrowing, sclerotic endplates and facet joint arthropathy. Other: Atherosclerotic calcifications of the aorta. 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 Reading Location: [id number]
== END | disposition home or self-care (01) ==
LOC: MTRAD 11:23
PROVIDERS: PCP Family Medicine; Referring Provider Family Medicine; Visit Provider Family Medicine
DX: M54.41 Lumbago with sciatica, right side (principal)
CPT/HCPCS: 72114